=== PATIENT | female | born 1955 | race Caucasian/White ===

== ENCOUNTER → 2016-11-25 | Outpatient (CLI) | payer OTHER ==
[~2016-11-25] MED LIST: ACCUNEB SO1.25 MG/1 INH; APAP650 PO; BENADRYL25 MG PO; BENTYL 20 MG TA20 M1 PO; COLACE100 MG PO; ECHINACEA & GO1 EACH PO; FLOMAX0.4 MG PO; FLONASE 0.05%50 MCG NASAL; FLOVENT HFA 1110 MCG INH; MUCINEX TA600 MG/TA2 PO; NASONEX17 GM NASAL; PROAIR HFA8.5 GM INH; PROTONIX40 M1 PO; UNICOMPLEX M TA1 TA1 PO; VITAMIN D1000 UNI1 PO
== END ==
LOC: RAD 12:20
DX: M25.531 Pain in right wrist (principal)

== ENCOUNTER → 2017-02-27 | Outpatient (CLI) | payer OTHER ==
[~2017-02-27] MED LIST changes: +ACETAMINOPHEN500 M1 PO; +KEFLEX500 MG PO
== END ==
LOC: RAD 15:17
DX: R10.9 Unspecified abdominal pain (principal)

== ENCOUNTER 2017-03-01 12:22 | Emergency (ER) | payer OTHER ==
[~2017-03-01] VITALS: Ht 152.4 cm; Wt 44.5 kg
[~2017-03-01 12:22] MED LIST changes: -ACETAMINOPHEN500 M1 PO; -KEFLEX500 MG PO
[2017-03-01] MEDS ORDERED: ACETAMINOPHEN500 M1 PO (12:34)
[2017-03-01 12:55] LABS: URINE BILIRUBIN NEGATIVE (Negative); URINE BLOOD 3+ (Negative); URINE COLOR YELLOW; URINE GLUCOSE-RANDOM* NEGATIVE (Negative); URINE KETONES TRACE (Negative); URINE LEUKOCYTES-REFLEX NEGATIVE (Negative); URINE PROTEIN (DIPSTICK) NEGATIVE (Negative); URINE UROBILINOGEN 0.2 E.U./dl (0.2-1.0)
[2017-03-01 13:06] LABS: HEMOGLOBIN 12.4 gm/dL (12.0-15.0); MCH 30.5 pg (26.0-34.0); MCHC 33.6 g/dL (28.0-37.0); MCV 90.7 fL (80.0-100.0); PLATELET COUNT 242 thou/uL (150-400); RBC 4.08 mil/uL (4.20-5.00); RDW 12.5 % (10.5-14.5); WBC 13.3 thou/uL (4.0-11.0)
[2017-03-01 13:12] LABS: CALCIUM 8.5 mg/dL (8.5-10.1); CREATININE 0.7 mg/dL (0.6-1.0); POTASSIUM 3.2 mmol/L (3.5-5.1)
[2017-03-01 13:13] LABS: CASTS None Seen /LPF (None Seen); CRYSTALS None Seen /LPF (None Seen); SQUAMOUS 0-3 Few /LPF (0-3); URINE RBC 3-10 Few /HPF (0-2); URINE WBC-REFLEX 0-5 Rare /HPF (0-5)
[2017-03-01 13:28] LABS: MANUAL DIFF YES
[2017-03-01 13:29] LABS: ALBUMIN 3.5 g/dL (3.4-5.0); TOTAL BILIRUBIN 0.6 mg/dL (<0.1-1.0); TOTAL PROTEIN 6.9 g/dL (6.4-8.2)
[2017-03-01 14:00] LABS: ABSOLUTE NEUTROPHILS 11.8 thou/uL (1.4-8.2); TOTAL CELL COUNT 100
[2017-03-01] MEDS ORDERED: KEFLEX500 MG PO (14:43)
== END 2017-03-01 16:59 | disposition home or self-care (01) ==
LOC: ER 12:22
PROVIDERS: Physician Assistant
DX: J18.8 Other pneumonia, unspecified organism (principal); K59.00 Constipation, unspecified; Z98.890 Other specified postprocedural states; Z90.710 Acquired absence of both cervix and uterus; J45.909 Unspecified asthma, uncomplicated; F41.9 Anxiety disorder, unspecified; Z90.721 Acquired absence of ovaries, unilateral; Z90.49 Acquired absence of other specified parts of digestive tract; Z88.1 Allergy status to other antibiotic agents; Z88.8 Allergy status to other drugs, medicaments and biological substances; F10.99 Alcohol use, unspecified with unspecified alcohol-induced disorder

== ENCOUNTER → 2017-05-11 | Outpatient (CLI) | payer OTHER ==
[~2017-05-11] MED LIST changes: +ACETAMINOPHEN500 M1 PO; +KEFLEX500 MG PO
== END ==
LOC: RAD 14:13
DX: K59.00 Constipation, unspecified (principal)

== ENCOUNTER → 2017-07-17 | Outpatient (CLI) | payer OTHER ==
[~2017-07-17] MED LIST changes: +AMOXICILLIN 50500 MG PO; +DIGEST ADV INT1 EACH PO; +FLOVENT INH
== END ==
LOC: RAD 15:41
DX: R10.9 Unspecified abdominal pain (principal); R14.0 Abdominal distension (gaseous); R11.0 Nausea

== ENCOUNTER 2017-07-18 15:18 | Inpatient (IN) | payer OTHER ==
[~2017-07-18] VITALS: Ht 152.4 cm; Wt 44.0 kg
--- NOTE | ~2017-07-18 | O ---
[facility] [place] [address] OPERATIVE REPORT Name: STEPHANIE KING Room #: 412-P ADM IN M.R.#: [id number] Admission: 07/18/17 Attend Phys: Arik Flaherty DO Discharge: Date of : 57 Report #: [id number] THIS REPORT FOR: //name// CC: Neil Coronel DATE OF SERVICE: 07/21/2017 SURGEON: Remebrto Coronel MD. SET O TYPE OPERATOR: Maribell Rueda NP. PREOPERATIVE DIAGNOSES: 1. Recurrent incisional ventral hernia. 2. Possible partial small-bowel obstruction. POSTOPERATIVE DIAGNOSES: 1. Recurrent incarcerated incisional ventral hernia. 2. Partial small-bowel obstruction secondary to internal hernia. PROCEDURE: 1. Laparoscopic repair of recurrent incarcerated incisional ventral hernia. 2. Laparoscopic lysis of adhesions. 3. Laparoscopic closure of internal hernia. ANESTHESIA: General endotracheal anesthesia and local anesthetic. ESTIMATED BLOOD LOSS: 5 mL. SPECIMEN: Incarcerated hernia content. COMPLICATIONS: None appreciated. INDICATIONS FOR PROCEDURE: This is a 61-year-old female patient who was seen in the [place] [facility] with complaints of severe abdominal pain and a "twisting" sensation in her abdomen occurring just prior to bowel obstructive symptoms. CT of the abdomen and pelvis at the time of admission showed a possible colonic ileus with nonspecific gastroenteritis similar to a previous CT scan. A small amount of pelvic ascites was present. A sac containing upper midline incisional hernia was also seen with no evidence for bowel obstruction. The patient has a history of multiple abdominal operations and was noted to have [facility] [address] [place] [address] OPERATIVE REPORT Name: STEPHANIE KING Room #: 412-P ADM IN M.R.#: [id number] Admission: 07/18/17 Attend Phys: Arik Flaherty DO Discharge: Date of : 57 Report #: [id number] inability to pass a pseudocapsule (capsule used to test for passage of a capsule endoscopy). She has a history of having undergone small bowel resections and has undergone resection of redundant transverse and descending colon as well as repair of an incisional ventral hernia. Since the patient's admission, she has undergone a small bowel follow-through which shows no evidence for a bowel obstruction. The patient has ongoing symptoms and complains of abdominal pain associated with her recurrent incisional ventral hernia as well. Repair of her hernia is indicated. While in her abdominal cavity, plan is to lyse any adhesions and evaluate for a partial small-bowel obstruction. OPERATIVE FINDINGS: Upon entrance into the abdominal cavity, the adhesions were seen extending to the anterior abdominal wall. After taking down the adhesions, multiple incisional ventral hernias were seen in a [place] cheese fashion. The largest of the hernias were located in the upper midline at the superior most portion of her incision. This contained preperitoneal and omental fat. The incarcerated tissue was eventually removed to be sent for specimen. The span of the defects in a craniocaudad dimension was 6 cm. It was approximately 2 cm wide. A 10 x [address] Mesh patch was chosen for the repair. After placement of the mesh, there was no rippling of the mesh and good overlap of the defects. On evaluation of her bowel, there was mild dilatation of her small bowel. Eventually, I was able to find the ileocecal valve and when running this back, I encountered bowel entering an internal hernia. The hernia was created to a mesenteric defect from her previous resection of redundant transverse colon. The anastomosis appeared intact. It was an end-to-end sutured anastomosis. Similarly, a small bowel anastomosis was seen more proximally. After fully reducing the small bowel from within the internal hernia, the mesenteric defect was visualized and amenable to intracorporeal suturing. The bowel was viable. No other significant intraabdominal pathology was seen. At the conclusion of the operation, sponge, needle, and instrument counts were correct. There was no evidence for iatrogenic injury. DESCRIPTION OF PROCEDURE IN DETAIL: After the risks, benefits, and expectations, the operation were discussed in detail with the patient, informed consent was obtained. The patient was identified in the preoperative holding area. She was given IV antibiotics as documented in the chart in line with SCIP metrics. The patient was then taken to the operating room and she was placed in the supine position. SCDs were placed on the patient's bilateral lower extremities and pneumatic compression was initiated. The patient was then given IV sedation and she was intubated without incident. Her abdomen was prepped and draped in the standard sterile fashion. A time-out was performed to identify the correct patient and procedure. Local anesthetic was infiltrated into the skin and subcutaneous tissue in the [address] [address] OPERATIVE REPORT Name: FERNANDOSTEPHANIE CASTILLO Room #: 412-P [facility] IN M.R.#: [id number] Admission: 07/18/17 Attend Phys: Ariktaran Storeyrell, DO Discharge: Date of : 57 Report #: [id number] left subcostal area where a small transverse incision was made. A 5 mm Visiport was placed intraperitoneally with a 0-degree angled laparoscope. Pneumoperitoneum was then achieved with insufflation of carbon dioxide to 15 mmHg. A 30-degree angled laparoscope was then inserted. Additional ports were placed in the left abdomen. A 12 mm left lateral and 5 mm lower quadrant port were each placed under direct visualization after local anesthetic was infiltrated into the skin and subcutaneous tissue and appropriately sized incisions were made. Operative findings are as noted above. The omental adhesions to the anterior abdominal wall were carefully taken down with the ultrasonic dissector after ensuring there was no bowel involvement. The abdominal wall was then skeletonized. The abdominal wall fat was removed from the superior most hernia defect and the peritoneum was stripped down out of each of the defects. Incarcerated tissue was placed in the right upper quadrant of the abdomen for later removal. The defects were then measured and the appropriate sized mesh patch was chosen for the repair. The mesh was prepared on the backtable and placed within the abdominal cavity through the 12 mm port. The eyelet of the inflation catheter was brought through the abdominal wall with a needle tipped suture grasper. The eyelet was then excised and the balloon was inflated with the inflation device. The balloon would serve as temporary scaffolding for the mesh. The mesh was then tacked to the anterior abdominal wall with the SecureStrap absorbable fixation device. The mesh was tacked at 1 cm or less intervals around the periphery. The catheter was then cut at the skin level and the balloon was removed from the abdominal cavity. The internal portion of the mesh was tacked to the abdominal wall with the SecureStrap device as well. The intra-abdominal pressure had been reduced to 10 mmHg. The incarcerated hernia content was then removed through the 12 mm port. The abdominal cavity was reentered. The transverse colon was visualized. I initially attempted to find the small bowel proximally; however, this proved to be quite difficult and I was eventually able to find the terminal ileum. The bowel was run back proximally. While doing so, the bowel seemed to cross under the colon and this represented an internal hernia. The bowel was run proximally while reducing it from the hernia defect. After fully reducing it, the colon was suspended anteriorly and a moderate sized mesenteric defect was identified associated with her previous transverse colon resection. This was located at the ligament of Treitz. A 3-0 PDS suture was then placed within the abdominal cavity and the mesenteric defect was closed in a running fashion. The tissue was triangulated to complete the closure. The needle was then removed from the abdominal cavity. The fluid from the abdominal cavity was suctioned and there was good hemostasis. Other findings are as noted above. The 12 mm port site fascial opening was then closed with the Asif-Carolyn laparoscopic fascial closure device using 0 PDS suture. Suture was tied under direct visualization to ensure no incorporation of intraabdominal content. The abdominal cavity was then desufflated and the remaining ports were removed. Interrupted subcuticular 4-0 Monocryl sutures and [address] [address] OPERATIVE REPORT Name: STEPHANIE KING Room #: 412-P [facility] IN M.R.#: [id number] Admission: 07/18/17 Attend Phys: Arik Flaherty DO Discharge: Date of : 57 Report #: [id number] Dermabond were used to close the skin incisions. Dermabond was also applied to the puncture site for delivery of the inflation catheter. The patient tolerated the procedure well. She was awakened, extubated, and taken to the recovery room in stable condition with no apparent intraoperative complications. <ELECTRONICALLY SIGNED> By: Remberto Coronel MD, FACS 07/25/17 0915 [id number] Remberto Coronel MD, FACS /nt
--- NOTE | ~2017-07-18 | HC ---
[facility] [address] CONSULTATION Name: STEPHANIE KING Room #: 412-P ADM IN M.R.#: [id number] Admission: 07/18/17 Attend Phys: Arik Flaherty DO Discharge: Date of : 57 Report #: [id number] THIS REPORT FOR: //name// CC: Shun LY DATE OF SERVICE: 07/19/2017 ATTENDING PHYSICIAN: Benjie Gonzalez DO REASON FOR CONSULTATION: Abdominal pain. HISTORY OF PRESENT ILLNESS: This is a 61-year-old female patient known to me from a recent evaluation for a partial small bowel obstruction. She was admitted to [facility] through the emergency room with complaints of severe abdominal pain and a "twisting" sensation in her abdomen, which occurs just prior to her bowel obstructive symptoms. She has been calling the office over the past several days with complaints of worsening pain and abdominal distention. She has been taking Fleet enemas with passage of some gas and minimal stool. She has initial release of her symptoms with the passage of flatus; however, her symptoms soon recur. She underwent a CT of the abdomen and pelvis at the time of her admission, showing a possible colonic ileus with nonspecific gastroenteritis similar to a previous CT scan. A small amount of pelvic ascites is also present. I reviewed the report further with radiology. A fat containing upper midline hernia was present (an addendum has been issued). There was no evidence for obstruction. The patient's symptoms began approximately 7 years ago when she became hypotensive and was found to be severely anemic with the hemoglobin in the 6 range. She underwent an extensive workup, which was essentially negative including both upper and lower endoscopy as well as capsule endoscopy. She had difficulty with intermittent episodes of anemia and eventually an area of bleeding, isolated in the jejunum, felt to be secondary to an arteriovenous malformation. She underwent embolization by interventional radiology in May 2010. She had ongoing difficulty with intermittent anemia and again began passing bright red blood per rectum, requiring embolization on other occasions. Ultimately, the patient underwent a segmental small bowel resection in May 2011 at which time a stromal tumor was identified. She required a segmental small bowel resection. She had an additional operation for a bowel obstruction during which time another small bowel resection and appendectomy were performed. The patient has undergone other operations including x 2 as well as a laparoscopic cholecystectomy. In the several years after her second segmental small bowel resection, the patient had intermittent episodes of bowel obstruction, treated with conservative measures. The patient ultimately [address] [address] CONSULTATION Name: STEPHANIE KING Room #: 412-P [facility] IN M.R.#: [id number] Admission: 07/18/17 Attend Phys: Arik Flaherty DO Discharge: Date of : 57 Report #: [id number] underwent a segmental small bowel resection and resection of redundant transverse and descending colon as well as primary repair of an incisional ventral hernia. This led up to her most recent difficulty with what are felt to be episodes of partial small bowel obstructions. The patient reports having undergone a small bowel follow through this past December, which was found to be abnormal. Greater than 2 hours was required for the contrast to travel to the colon. A definite transition point was not identified. The patient was to undergo a capsule endoscopy and swallowed a pseudocapsule (used to determine whether the actual capsule would pass). The pseudocapsule did not pass beyond the certain point and for this reason, capsule endoscopy was not performed. The patient has been seen in the emergency room this past February and March for similar small bowel obstructive symptoms and in March, she was felt to have an ileus. More recently abdominal films obtained with nonspecific bowel gas pattern and moderate stool in the colon. On the day prior to her admission, the patient underwent a 3-view abdominal x-ray showing mild generalized ileus without obstruction and no evidence for an acute intraabdominal process or small bowel obstruction. Abdominal x-ray this past April was reviewed, which showed the gastric motility capsule to be located in the central pelvis as well as a possible mild ileus. The patient denies fever or chills. Her abdominal pain has improved today compared to her pain at presentation. PAST MEDICAL HISTORY: Significant for cavernous hemangioma, GI stromal tumor, previous GI bleed, overactive bladder, thyroid nodule. PAST SURGICAL HISTORY: Includes that which as noted above. The patient has undergone , laparoscopic cholecystectomy, colectomy, including small bowel resection, transverse colon resection, eye surgery, hysterectomy, thyroid biopsy, other previous bowel resections and incisional ventral hernia repair. MEDICATIONS: Please see the hospital chart for details. She is currently receiving amoxicillin (recent now), pantoprazole, Lovenox, p.r.n. Dilaudid and a p.r.n. Zofran. ALLERGIES: DOXYCYCLINE and VANCOMYCIN. FAMILY HISTORY: Reviewed and noncontributory to this hospitalization. Her mother has hypertension and atrial fibrillation. Father has macular degeneration. SOCIAL HISTORY: The patient denies use of tobacco or illicit drugs. She drinks one alcoholic drink daily. 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 REVIEW OF SYSTEMS: As per history of present illness. In addition: [address] [address] CONSULTATION Name: STEPHANIE KING Room #: 412-P [facility] IN [facility]#: [id number] Admission: 07/18/17 Attend Phys: Arik Flaherty DO Discharge: Date of : 57 Report #: [id number] GENERAL: The patient denies fever, chills or unexpected weight change. HEENT: Denies changes in taste, vision, hearing or smell. RESPIRATORY: Denies shortness of breath, COPD or asthma. CARDIOVASCULAR: Denies chest pain or palpitations. GENITOURINARY: Denies dysuria, urgency or increased urinary frequency. MUSCULOSKELETAL: Denies myalgia, arthralgia or arthritis. NEUROLOGIC: Denies headaches, numbness or tingling. PSYCHIATRIC: Denies depression, anxiety or suicidal ideations. SKIN AND INTEGUMENTARY: Denies new skin lesions, rashes or moles. LABORATORY DATA: CBC today shows a white blood cell count of 4.1, hemoglobin 13.2, hematocrit 37.9 and platelets 272. Electrolytes show sodium of 136, potassium 4.3, chloride 101, CO2 of 27, BUN 6, creatinine 0.7 and glucose 95. Lactate at admission was normal at 0.8. Liver function tests at admission were entirely normal. RADIOLOGIC STUDIES: Abdominal series and CT findings are as discussed above. IMPRESSION AND PLAN: This is a 61-year-old female patient with the above listed comorbidities, who has a twisting sensation in the lower abdomen as a precursor sensation to a small bowel obstruction. She reports abdominal distention. Her CT scan has shown changes consistent with a colonic ileus rather than an obstructive process. We discussed the pathophysiology and natural history of small bowel obstructive disease as well as treatment alternatives, evaluation, and potential surgical options. The patient would benefit from a repeat small bowel follow through to compare with her previous small bowel follow through. She may have colonic inertia or may be sensitive to the adhesions within her abdominal cavity. She does have a recurrent incisional ventral hernia at the superior aspect of her incisional scar. The patient may benefit from operative intervention, informed of a diagnostic laparoscopy. I would plan to repair her incisional ventral hernia and would perform lysis of adhesions on any significant scar tissue within the abdominal cavity. The patient may require a segmental small bowel resection, and if so, the use of mesh may not be possible. I will follow along with serial abdominal exams as well as labs and x-rays. I sincerely appreciate the opportunity to participate in the care of this patient and will leave further recommendations and orders in the electronic medical record as appropriate. Thank you very much for this exclusive general surgery consult. <ELECTRONICALLY SIGNED> By: Remberto Coronel MD, FACS 07/20/17 0652 [id number] Remberto Coronel MD, FACS /nt
--- NOTE | ~2017-07-18 | S ---
[facility] [place] [address] SURGICAL PATH RPT PROCEDURE Name: STEPHANIE KING Room #: 412-P [facility] IN M.R.#: [id number] Admission: 07/18/17 Date of : 57 Discharge: 07/25/17 Report #: [id number] Path Case #: [id number] PATHOLOGY REPORT COLLECTION DATE: 07/21/2017 RECEIVED DATE: 07/21/2017 SUBMITTING PHYS: Dr. Remberto Coronel OTHER PHYS: MAYRA Irving SPECIMEN(S) RECEIVED: A.Incarcerated hernia contents * * * * * * * * * * * * FINAL DIAGNOSIS: Fibroadipose and fibrovascular connective tissue, incarcerated hernia contents, repair: - Congested tissue compatible with a hernia sac. (IUV:mml; 07/25/2017) PATHOLOGIST: Vesna Hernandez M.D. REPORT ELECTRONICALLY SIGNED BY: Vesna Hernandez M.D. DATE/TIME: 07/25/2017 16:38 * * * * * * * * * * * * GROSS PATHOLOGY: Received in formalin labeled "Stephanie King, incarcerated hernia contents," and additionally labeled on the requisition as "contents," is a piece of fibroadipose tissue with attached fibrinous tissue measuring 6.3 x 3.6 x 1.6 cm. No nodules or lesions are identified. Copy Camera Operator tissue is submitted in cassette A1. (TSD; 07/21/2017) CLINICAL HISTORY: Pre-OP DX: Small bowel obstruction/ventral hernia Post-OP DX: Incarcerated ventral/incisional hernia, mesenteric defect INITIAL CPT CODE(S): A; 64988 Professional services performed by [facility] at [facility] [address], [place] [address] Technical services performed by [facility] at [address] [place] [address]. [facility] [address] [place] [address] SURGICAL PATH RPT PROCEDURE Name: CLARISSABIRDSTEPHANIE CASTILLO Room #: 412-P [facility] IN ..#: [id number] Admission: 07/18/17 Date of : 57 Discharge: 07/25/17 Report #: [id number] Path Case #: [id number] [facility] [address] [address] PHONE: [phone] DIRECTOR: Won Lanza M.D. * * * END OF REPORT * * *
[2017-07-18 15:18] VITALS: BP 152/97
[~2017-07-18 15:18] MED LIST changes: -AMOXICILLIN 50500 MG PO; -DIGEST ADV INT1 EACH PO; -FLOVENT INH
[2017-07-18 15:35] LABS: URINE BILIRUBIN NEGATIVE (Negative); URINE BLOOD 2+ (Negative); URINE COLOR YELLOW; URINE GLUCOSE-RANDOM* NEGATIVE (Negative); URINE KETONES NEGATIVE (Negative); URINE NITRITE NEGATIVE (Negative); URINE PROTEIN (DIPSTICK) NEGATIVE (Negative); URINE SPECIFIC GRAVITY <= 1.005 (1.003-1.035); URINE UROBILINOGEN 0.2 E.U./dl (0.2-1.0)
[2017-07-18 15:44] LABS: ABSOLUTE NEUTROPHILS 3.7 thou/uL (1.4-8.2); BASOPHILS 0.8 % (0.0-2.0); EOSINOPHILS 0.3 % (0.0-3.0); HEMOGLOBIN 14.9 gm/dL (12.0-15.0); LYMPHOCYTES 19.4 % (24.0-44.0); MCHC 34.7 g/dL (28.0-37.0); MCV 92.1 fL (80.0-100.0); MONOCYTES 9.8 % (1.0-8.0); PLATELET COUNT 298 thou/uL (150-400); POLYS 69.7 % (36.0-66.0); RBC 4.66 mil/uL (4.20-5.00); RDW 12.5 % (10.5-14.5); WBC 5.3 thou/uL (4.0-11.0)
[2017-07-18 15:44] LABS: BACTERIA 1-9 Few /HPF (None Seen); CASTS None Seen /LPF (None Seen); CRYSTALS None Seen /LPF (None Seen); SQUAMOUS 0-3 Few /LPF (0-3); URINE RBC 0-2 Rare /HPF (0-2); URINE WBC None Seen /HPF (0-5)
[2017-07-18 15:55] LABS: MANUAL DIFF NO
[2017-07-18 15:58] LABS: CALCIUM 9.7 mg/dL (8.5-10.1); CREATININE 0.6 mg/dL (0.6-1.0); POTASSIUM 3.6 mmol/L (3.5-5.1)
[2017-07-18 16:04] LABS: ALBUMIN 4.7 g/dL (3.4-5.0); TOTAL BILIRUBIN 0.7 mg/dL (<0.1-1.0); TOTAL PROTEIN 7.9 g/dL (6.4-8.2)
[2017-07-18 16:19] LABS: INR 1.1; PROTIME 10.4 Seconds (9.3-11.4)
[2017-07-18] MEDS ORDERED: AMOXICILLIN 50500 MG PO (16:43)
[2017-07-18 17:32] VITALS: BP 152/97
[2017-07-18 18:00] VITALS: BP 143/87
[2017-07-18 18:07] VITALS: BP 141/84
[2017-07-18] MEDS ORDERED: FLOVENT INH (18:32)
[2017-07-18] MEDS ORDERED: DIGEST ADV INT1 EACH PO (18:32)
[2017-07-18 20:06] VITALS: BP 105/69
[2017-07-18 23:48] VITALS: BP 94/64
[2017-07-19 04:12] VITALS: BP 96/60
[2017-07-19 06:20] LABS: HEMATOCRIT 37.9 % (37.0-47.0); HEMOGLOBIN 13.2 gm/dL (12.0-15.0); MCH 32.5 pg (26.0-34.0); MCHC 34.9 g/dL (28.0-37.0); MCV 93.1 fL (80.0-100.0); RBC 4.07 mil/uL (4.20-5.00); RDW 12.7 % (10.5-14.5); WBC 4.1 thou/uL (4.0-11.0)
[2017-07-19 06:47] LABS: CREATININE 0.7 mg/dL (0.6-1.0); POTASSIUM 4.3 mmol/L (3.5-5.1)
[2017-07-19 07:40] VITALS: BP 107/76
[2017-07-19 20:50] VITALS: BP 130/83
[2017-07-20 00:04] VITALS: BP 133/91
[2017-07-20 04:30] VITALS: BP 149/89
[2017-07-20 06:25] LABS: ABSOLUTE NEUTROPHILS 3.1 thou/uL (1.4-8.2); BASOPHILS 1.1 % (0.0-2.0); EOSINOPHILS 0.2 % (0.0-3.0); HEMATOCRIT 41.1 % (37.0-47.0); HEMOGLOBIN 14.5 gm/dL (12.0-15.0); LYMPHOCYTES 16.4 % (24.0-44.0); MCH 32.3 pg (26.0-34.0); MCHC 35.2 g/dL (28.0-37.0); MCV 91.8 fL (80.0-100.0); MONOCYTES 10.2 % (1.0-8.0); PLATELET COUNT 279 thou/uL (150-400); POLYS 72.1 % (36.0-66.0); RBC 4.48 mil/uL (4.20-5.00); RDW 12.4 % (10.5-14.5); WBC 4.3 thou/uL (4.0-11.0)
[2017-07-20 06:30] LABS: MANUAL DIFF NO
[2017-07-20 07:06] LABS: ALBUMIN 4.6 g/dL (3.4-5.0); CALCIUM 9.6 mg/dL (8.5-10.1); CREATININE 0.4 mg/dL (0.6-1.0); POTASSIUM 3.3 mmol/L (3.5-5.1); TOTAL BILIRUBIN 1.1 mg/dL (<0.1-1.0); TOTAL PROTEIN 7.8 g/dL (6.4-8.2)
[2017-07-20 08:44] VITALS: BP 138/92
[2017-07-20 10:27] LABS: APTT 34.9 Seconds (24.5-32.8); INR 1.1; PROTIME 11.2 Seconds (9.3-11.4)
[2017-07-20 16:00] VITALS: BP 115/70
[2017-07-20 20:30] VITALS: BP 132/94
[2017-07-21] VITALS (9 sets, daily range): BP systolic 106–130; BP diastolic 66–76
[2017-07-21 04:51] LABS: HEMATOCRIT 37.3 % (37.0-47.0); HEMOGLOBIN 12.7 gm/dL (12.0-15.0); MCH 31.7 pg (26.0-34.0); MCV 93.2 fL (80.0-100.0); RDW 12.4 % (10.5-14.5)
[2017-07-21 05:25] LABS: CALCIUM 8.7 mg/dL (8.5-10.1); CREATININE 0.6 mg/dL (0.6-1.0); MAGNESIUM 1.8 mg/dL (1.8-2.4); POTASSIUM 3.7 mmol/L (3.5-5.1)
[2017-07-22 00:17] VITALS: BP 121/71
[2017-07-22 04:03] LABS: ALBUMIN 3.3 g/dL (3.4-5.0); CALCIUM 8.6 mg/dL (8.5-10.1); CREATININE 0.6 mg/dL (0.6-1.0); MAGNESIUM 1.8 mg/dL (1.8-2.4); POTASSIUM 3.2 mmol/L (3.5-5.1); TOTAL BILIRUBIN 0.6 mg/dL (<0.1-1.0)
[2017-07-22 04:28] LABS: ABSOLUTE NEUTROPHILS 6.3 thou/uL (1.4-8.2); BASOPHILS 0.2 % (0.0-2.0); EOSINOPHILS 0.7 % (0.0-3.0); HEMATOCRIT 37.4 % (37.0-47.0); HEMOGLOBIN 12.7 gm/dL (12.0-15.0); LYMPHOCYTES 13.7 % (24.0-44.0); MCH 31.8 pg (26.0-34.0); MCV 93.4 fL (80.0-100.0); MONOCYTES 9.2 % (1.0-8.0); PLATELET COUNT 246 thou/uL (150-400); POLYS 76.2 % (36.0-66.0); RDW 12.3 % (10.5-14.5); WBC 8.3 thou/uL (4.0-11.0)
[2017-07-22 04:29] VITALS: BP 116/82
[2017-07-22 04:31] LABS: MANUAL DIFF NO
[2017-07-22 08:30] VITALS: BP 108/79
[2017-07-22 16:42] VITALS: BP 111/76
[2017-07-22 20:00] VITALS: BP 137/88
[2017-07-23 06:24] LABS: HEMATOCRIT 34.2 % (37.0-47.0); HEMOGLOBIN 11.6 gm/dL (12.0-15.0); MCH 31.8 pg (26.0-34.0); MCHC 33.9 g/dL (28.0-37.0); MCV 93.9 fL (80.0-100.0); RBC 3.64 mil/uL (4.20-5.00); RDW 12.5 % (10.5-14.5); WBC 4.3 thou/uL (4.0-11.0)
[2017-07-23 06:29] VITALS: BP 116/79
[2017-07-23 06:33] LABS: CALCIUM 8.2 mg/dL (8.5-10.1); CREATININE 0.5 mg/dL (0.6-1.0); POTASSIUM 3.2 mmol/L (3.5-5.1)
[2017-07-23 07:49] VITALS: BP 126/88
[2017-07-23 20:04] VITALS: BP 140/96
[2017-07-23 22:48] VITALS: BP 132/87
[2017-07-24 05:18] LABS: HEMATOCRIT 34.3 % (37.0-47.0); HEMOGLOBIN 11.7 gm/dL (12.0-15.0); MCH 31.8 pg (26.0-34.0); MCHC 34.1 g/dL (28.0-37.0); MCV 93.4 fL (80.0-100.0); PLATELET COUNT 212 thou/uL (150-400); RBC 3.68 mil/uL (4.20-5.00); RDW 12.5 % (10.5-14.5)
[2017-07-24 05:19] LABS: MANUAL DIFF YES
[2017-07-24 06:32] LABS: ABSOLUTE NEUTROPHILS 1.8 thou/uL (1.4-8.2); TOTAL CELL COUNT 100
[2017-07-24 06:33] VITALS: BP 111/81
[2017-07-24 08:30] VITALS: BP 109/77
[2017-07-24 11:57] LABS: CALCIUM 8.6 mg/dL (8.5-10.1); CREATININE 0.6 mg/dL (0.6-1.0); POTASSIUM 3.6 mmol/L (3.5-5.1)
[2017-07-24 17:13] VITALS: BP 141/87
[2017-07-24 19:05] VITALS: BP 117/89
[2017-07-25 03:46] VITALS: BP 102/66
[2017-07-25 07:30] VITALS: BP 120/82
[2017-07-25 09:39] LABS: URINE BILIRUBIN NEGATIVE (Negative); URINE BLOOD 1+ (Negative); URINE COLOR YELLOW; URINE GLUCOSE-RANDOM* NEGATIVE (Negative); URINE KETONES NEGATIVE (Negative); URINE LEUKOCYTES-REFLEX NEGATIVE (Negative); URINE PROTEIN (DIPSTICK) NEGATIVE (Negative); URINE UROBILINOGEN 0.2 E.U./dl (0.2-1.0)
[2017-07-25 09:53] LABS: CASTS None Seen /LPF (None Seen); CRYSTALS None Seen /LPF (None Seen); SQUAMOUS 0-3 Few /LPF (0-3); URINE RBC 3-10 Few /HPF (0-2); URINE WBC-REFLEX 0-5 Rare /HPF (0-5)
[2017-07-25 10:01] LABS: HEMATOCRIT 40.4 % (37.0-47.0); MCH 32.3 pg (26.0-34.0); MCHC 34.1 g/dL (28.0-37.0); MCV 94.8 fL (80.0-100.0); RBC 4.26 mil/uL (4.20-5.00); RDW 12.6 % (10.5-14.5); WBC 4.3 thou/uL (4.0-11.0)
[2017-07-25 10:02] LABS: HEMOGLOBIN 13.8 gm/dL (12.0-15.0)
[2017-07-25 10:13] LABS: CALCIUM 9.4 mg/dL (8.5-10.1); CREATININE 0.9 mg/dL (0.6-1.0); MAGNESIUM 2.3 mg/dL (1.8-2.4); POTASSIUM 3.1 mmol/L (3.5-5.1); TOTAL BILIRUBIN 0.3 mg/dL (<0.1-1.0); TOTAL PROTEIN 7.5 g/dL (6.4-8.2)
[2017-07-25] MEDS ORDERED: PEPCID20 MG PO (11:01)
[2017-07-25 11:38] VITALS: BP 120/82
== END 2017-07-25 13:02 | disposition home or self-care (01) | DRG 336 ==
LOC: ER 15:18 → EROBS 17:17 → 4N 17:17 → ENTRNSPT 07-25 12:48 → EDTRNSPTSTS 07-25 12:51 → 4N 07-25 13:02
PROVIDERS: Hospitalist; Internal Medicine Endocrinology, Diabetes & Metabolism; Nurse Practitioner Family; Surgery
PROC: 0DNS4ZZ (ICD-10-PCS; principal; 2017-07-21)
PROC: 0WUF4JZ Supplement Abdominal Wall with Synthetic Substitute, Percutaneous Endoscopic Approach (ICD-10-PCS; principal; 2017-07-21)
PROC: 0WQF4ZZ Repair Abdominal Wall, Percutaneous Endoscopic Approach (ICD-10-PCS; principal; 2017-07-21)
DX: K43.0 Incisional hernia with obstruction, without gangrene (principal); E87.1 Hypo-osmolality and hyponatremia; E46 Unspecified protein-calorie malnutrition; Z68.1 Body mass index [BMI] 19.9 or less, adult; J45.909 Unspecified asthma, uncomplicated; F41.9 Anxiety disorder, unspecified; K52.9 Noninfective gastroenteritis and colitis, unspecified; K66.0 Peritoneal adhesions (postprocedural) (postinfection); E87.6 Hypokalemia; Z90.710 Acquired absence of both cervix and uterus; Z90.89 Acquired absence of other organs; Z88.1 Allergy status to other antibiotic agents; Z90.49 Acquired absence of other specified parts of digestive tract; Z82.49 Family history of ischemic heart disease and other diseases of the circulatory system; Z84.89 Family history of other specified conditions
CPT/HCPCS: 10790; 50010; 50101; 50249; 50386; 50455; 50555; 50558; 50962; 50979; 50984; 51489; 52265; 53307; 54022; 54118; 56462; 56525; 56526; 56527; 57092; 62110; 62900; 70005

== ENCOUNTER → 2017-07-26 | Outpatient (CLI) | payer OTHER ==
[~2017-07-26] MED LIST changes: +AMOXICILLIN 50500 MG PO; +DIGEST ADV INT1 EACH PO; +FLOVENT INH; +PEPCID20 MG PO
== END ==
LOC: RAD 07:39
DX: Z12.31 Encounter for screening mammogram for malignant neoplasm of breast (principal)

== ENCOUNTER → 2017-08-21 | Outpatient (CLI) | payer OTHER ==
[~2017-08-21] VITALS: Ht 152.4 cm; Wt 42.6 kg
[~2017-08-21] MED LIST changes: +GAS-X125 MG PO; +KLOR-CON 1010 MEQ PO; +MIRALAX17 G1 PO; +PROBIOTIC1 EAC1 PO; +REFRESH PLUS1 EACH OPHTHALMIC; +TOBRADEX ST EYE5 ML OPHTHALMIC; +TRAMADOL 50 MG50 MG PO
--- NOTE | ~2017-08-21 | P ---
[facility] [place] [address] PROCEDURE REPORT Name: STEPHANIE KING Room #: REG [facility]#: [id number] Admission: 08/21/17 Attend Phys: Shun Kowalski Discharge: Date of : 57 Report #: [id number] THIS REPORT FOR: //name// CC: Shun Coronel MD DATE OF SERVICE: 08/21/2017 PROCEDURE PERFORMED: Upper endoscopy with esophageal dilation. HISTORY OF PRESENT ILLNESS: The patient is a 61-year-old female with a history of gastroesophageal reflux disease, Sjogren syndrome. She has had previous history of GI bleed from a small bowel lesion status post resection. She has had a redo of the anastomosis by Dr. Warren several years ago and then recently on July 21 had a hernia repair by Dr. Coronel that reportedly showed a partial obstruction. She continues to have difficulty with abdominal pain and bloating. Plan is for upper endoscopy today. DESCRIPTION OF PROCEDURE: The risks and benefits of the procedure were explained to the patient, those risks including but not limited to bleeding, perforation, the risk of sedation. She understands these risks and gave informed consent. Sedation was given using propofol per anesthesia. Next, using a standard [employer]n upper endoscope, the scope was placed in the patient's mouth and advanced under direct vision through the esophagus, stomach and into the second portion of the duodenum. The esophagus was normal throughout. The GE junction was normal. There was no evidence of stricture or narrowing, no esophagitis was noted. Overall, the gastric mucosa was normal throughout. The pylorus was normal and patent. The duodenal bulb, first and second portion were all normal. The scope was then brought back up into the patient's stomach and a Savary guidewire was inserted through the scope, leaving the guidewire in place as the scope was then withdrawn. Next, a 48-Kinyarwanda Savary dilation of the esophagus was then performed without difficulty. The wire and dilator removed. The scope was reintroduced into the patient's stomach. There was no evidence of mucosal tear after dilation. The scope was then withdrawn and the procedure terminated. The patient tolerated the procedure well. IMPRESSION: Normal upper endoscopy. RECOMMENDATIONS: 1. Observe the patient post-dilation. 2. Continue daily PPI therapy. 3. We will consider proceeding with a small bowel follow through. [address] [address] PROCEDURE REPORT Name: FERNANDOSTEPHANIEMARIYA CASTILLO Room #: REG [facility]#: [id number] Admission: 08/21/17 Attend Phys: Shun Kowalski Discharge: Date of : 57 Report #: [id number] Thank you for allowing me to participate in her care. <ELECTRONICALLY SIGNED> By: Shun Gray MD 08/21/17 1122 [id number] [id number] Shun Gray MD /kelly
== END | disposition home or self-care (01) ==
LOC: GI 06:49
DX: K21.9 Gastro-esophageal reflux disease without esophagitis (principal); J45.909 Unspecified asthma, uncomplicated; M35.00 Sjogren syndrome, unspecified; F41.8 Other specified anxiety disorders; Z90.710 Acquired absence of both cervix and uterus; Z98.0 Intestinal bypass and anastomosis status; Z90.49 Acquired absence of other specified parts of digestive tract; Z88.0 Allergy status to penicillin; Z79.899 Other long term (current) drug therapy; Z85.038 Personal history of other malignant neoplasm of large intestine; Z87.19 Personal history of other diseases of the digestive system
CPT/HCPCS: 62110; 62900

== ENCOUNTER → 2017-10-31 | Outpatient (CLI) | payer OTHER ==
[~2017-10-31] MED LIST changes: +BOOST244 ML PO; +FLOVENT HFA 4444 MCG INH; +HYDROCODONE-AP1 EAC6 PO; +LEVALBUTER1.25 MG/0. INH; +PHENERGAN 25 MG25 M1 PO; +SYSTANE NIGHTT3.5 GM OPHTHALMIC; +XOPENEX HFA15 GM INH; +XYZAL5 MG PO
== END ==
LOC: MRI 08:57
DX: M47.896 Other spondylosis, lumbar region (principal); R06.00 Dyspnea, unspecified

== ENCOUNTER → 2017-11-08 | Outpatient (CLI) | payer OTHER ==
[~2017-11-08] MED LIST changes: +EPINEPHRIN0.3 MG/0.1 IM; +LINZESS72 MCG PO; +MIRALAX17 GM PO; +MOXIFLOXACIN3 ML OPHTHALMIC; +PRED-FORTE OPHTH1 M1 OPHTHALMIC; +VITAMIN D2000 UNIT PO; +ZANTAC 150MG T150 MG PO
== END ==
LOC: GI 06:36
DX: K92.2 Gastrointestinal hemorrhage, unspecified (principal)

== ENCOUNTER → 2017-11-10 | Outpatient (CLI) | payer OTHER ==
[~2017-11-10] MED LIST changes: -EPINEPHRIN0.3 MG/0.1 IM; -LINZESS72 MCG PO; -MIRALAX17 GM PO; -MOXIFLOXACIN3 ML OPHTHALMIC; -PRED-FORTE OPHTH1 M1 OPHTHALMIC; -VITAMIN D2000 UNIT PO; -ZANTAC 150MG T150 MG PO
== END ==
LOC: RAD 07:20
DX: R10.11 Right upper quadrant pain (principal); T18.9XXA Foreign body of alimentary tract, part unspecified, initial encounter; X58.XXXA Exposure to other specified factors, initial encounter; Y93.89 Activity, other specified; Y92.89 Other specified places as the place of occurrence of the external cause; Y99.8 Other external cause status

== ENCOUNTER → 2017-12-20 | Outpatient (CLI) | payer OTHER ==
[~2017-12-20] MED LIST changes: +EPINEPHRIN0.3 MG/0.1 IM; +LINZESS72 MCG PO; +MIRALAX17 GM PO; +MOXIFLOXACIN3 ML OPHTHALMIC; +PRED-FORTE OPHTH1 M1 OPHTHALMIC; +VITAMIN D2000 UNIT PO; +ZANTAC 150MG T150 MG PO
[2017-12-20 08:24] LABS: CREATININE 0.7 mg/dL (0.6-1.0)
== END ==
LOC: CAT 07:53
PROVIDERS: Surgery
DX: R10.9 Unspecified abdominal pain (principal); Z90.49 Acquired absence of other specified parts of digestive tract; Z87.19 Personal history of other diseases of the digestive system

== ENCOUNTER → 2017-12-22 | Outpatient (CLI) | payer OTHER | LOC: RAD 07:58 | DX: R10.9 Unspecified abdominal pain (principal) ==

== ENCOUNTER → 2018-03-14 | Outpatient (CLI) | payer OTHER ==
[~2018-03-14] VITALS: Ht 152.4 cm; Wt 43.5 kg
[~2018-03-14] MED LIST changes: -VITAMIN D2000 UNIT PO
--- NOTE | ~2018-03-14 | P ---
[facility] [place] [address] PROCEDURE REPORT Name: STEPHANIE KING Room #: REG [facility].#: [id number] Admission: 03/14/18 Attend Phys: Shun Kowalski Discharge: Date of : 57 Report #: [id number] THIS REPORT FOR: //name// CC: Shun Boogie Elda Keagan LY DATE OF SERVICE: 03/14/2018 PROCEDURE PERFORMED: Upper endoscopy with esophageal dilation. HISTORY OF PRESENT ILLNESS: The patient is a 62-year-old female with intermittent dysphagia. Last upper endoscopy with dilation was performed in August, which was helpful. She is having recurrent dysphagia at this time. Plan is for repeat dilation. DESCRIPTION OF PROCEDURE: The risks and benefits of the procedure were explained to the patient, those risks including but not limited to bleeding, perforation and the risk of sedation. She understood these risks and gave informed consent. Sedation was given using propofol per anesthesia. Next, using a standard [employer] upper endoscope, the scope was placed in the patient's mouth and advanced under direct vision through the esophagus, stomach and into the second portion of the duodenum. The larynx was normal in appearance. The esophagus was normal throughout. The GE junction was normal. No evidence of stricture or narrowing. Overall, the gastric mucosa was normal. The pylorus was normal and patent. The duodenal bulb, first and second portion were all normal. The scope was then brought back up into the patient's stomach and a Savary guidewire was inserted through the scope, leaving the guidewire in place as the scope was withdrawn. Next, 51-Azerbaijani Savary dilation was then performed without difficulty. The wire and dilator were removed. The scope was reintroduced into the patient's stomach. There was no evidence of mucosal tear after dilation. The scope was then withdrawn and the procedure terminated. The patient tolerated the procedure well. IMPRESSION: 1. Normal upper endoscopy. 2. Status post dilation. RECOMMENDATIONS: Observe the patient post-dilation. Thank you for allowing me to participate in her care. By: 0944 1225 Shun Gray MD /nt
== END | disposition home or self-care (01) ==
LOC: GI 07:49
DX: R13.19 Other dysphagia (principal); J45.909 Unspecified asthma, uncomplicated; K21.9 Gastro-esophageal reflux disease without esophagitis; M19.90 Unspecified osteoarthritis, unspecified site; F41.8 Other specified anxiety disorders; Z98.41 Cataract extraction status, right eye; Z90.49 Acquired absence of other specified parts of digestive tract; Z98.890 Other specified postprocedural states; Z90.710 Acquired absence of both cervix and uterus; Z87.19 Personal history of other diseases of the digestive system; Z85.068 Personal history of other malignant neoplasm of small intestine; Z79.899 Other long term (current) drug therapy; Z88.8 Allergy status to other drugs, medicaments and biological substances
CPT/HCPCS: 62110; 62900

== ENCOUNTER → 2018-07-03 | Outpatient (CLI) | payer OTHER | LOC: RAD 10:14 | DX: I87.8 Other specified disorders of veins (principal); R10.9 Unspecified abdominal pain; R14.0 Abdominal distension (gaseous); R50.9 Fever, unspecified; J45.909 Unspecified asthma, uncomplicated; M81.0 Age-related osteoporosis without current pathological fracture ==

== ENCOUNTER → 2018-08-15 | Outpatient (CLI) | payer OTHER ==
[~2018-08-15] MED LIST changes: +VITAMIN D2000 UNIT PO
--- NOTE | ~2018-08-15 | 2DMMODE ---
[facility] [place] [address] 2 D/M-MODE ECHOCARDIOGRAM Name: STEPHANIE KING Room #: REG [facility]#: [id number] Admission: 08/15/18 Attend Phys: Melissa Martinez, Discharge: Date of : 57 Date of Service: 08/15/18 1447 Report #: [id number] THIS REPORT FOR: //name// ADDENDUM APPROVED REPORT Study performed: 08/15/2018 13:37:24 EXAM: Comprehensive 2D, Doppler, and color-flow Echocardiogram Patient Location: Out-Patient Status: routine BSA: 1.41 HR: 66 bpm BP: 112/77 mmHg Rhythm: NSR Other Information Study Quality: Adequate Technically limited study due to thin body habitus, off-axis windows. Indications Palpitations 2D Dimensions RVDd: 25.46 mm IVSd: 7.66 (7-11mm) LVOT Diam: 21.17 (18-24mm) LVDd: 42.05 mm PWd: 7.82 (7-11mm) Ascending Ao: 27.94 (22-36mm) LVDs: 25.44 (25-40mm) Aortic Root: 26.16 mm IVC: 22.00 mm Volumes Left Atrial Volume (Systole) Single Plane 4CH: 13.80 mL Aortic Valve AoV Peak Parvez.: 1.10 m/s AO Peak Gr.: 4.81 mmHg LVOT Max P.89 mmHg LVOT Max V: 0.69 m/s PARKER Vmax: 2.20 cm2 Mitral Valve E/A Ratio: 1.2 MV Decel. Time: 235.07 ms [facility] [address] [address] 2 D/M-MODE ECHOCARDIOGRAM Name: STEPHANIE KING Room #: REG [facility]#: [id number] Admission: 08/15/18 Attend Phys: Melissa Martinez, Discharge: Date of : 57 Date of Service: 08/15/18 1447 Report #: [id number] MV E Max Parvez.: 0.50 m/s MV A Parvez.: 0.41 m/s MV PHT: 68.17 ms IVRT: 101.50 ms Tricuspid Valve TR Peak Parvez.: 2.20 m/s RAP Estimate: 5.00 mmHg TR Peak Gr.: 19.33 mmHg Left Ventricle The left ventricle is normal size. There is normal LV segmental wall motion. There is normal left ventricular wall thickness. The left ventricular systolic function is normal. LVEF is 55-60%. Right Ventricle The right ventricle is normal size. The right ventricular systolic function is normal. Atria The left atrium size is normal. The right atrium size is normal. Aortic Valve Aortic valve leaflets are mildly thickened. Trace aortic regurgitation. There is no aortic valvular stenosis. Mitral Valve The mitral valve is normal in structure. Trace mitral regurgitation. No evidence of mitral valve stenosis. Tricuspid Valve The tricuspid valve is normal in structure. Mild tricuspid regurgitation. Unable to assess PA pressure. Pulmonic Valve Pulmonic valve is not well visualized. Great Vessels The aortic root is normal in size. The ascending aorta is normal in size. IVC is normal in size and collapses >50% with inspiration. Pericardium There is no pericardial effusion. <Conclusion> [facility] [address] [address] 2 D/M-MODE ECHOCARDIOGRAM Name: STEPHANIE KING Room #: REG [facility]#: [id number] Admission: 08/15/18 Attend Phys: Melissa Martinez, Discharge: Date of : 57 Date of Service: 08/15/181446 Report #: [id number] The left ventricle is normal size. There is normal left ventricular wall thickness. The left ventricular systolic function is normal. The right ventricle is normal size. The left atrium size is normal. The right atrium size is normal. Trace aortic regurgitation. Trace mitral regurgitation. Mild tricuspid regurgitation. There is no pericardial effusion. <ELECTRONICALLY SIGNED> By: Joe Restrepo MD 08/15/18 [phone] Joe Restrepo MD /INF
== END ==
LOC: CV 08:16
DX: Z12.31 Encounter for screening mammogram for malignant neoplasm of breast (principal); I07.1 Rheumatic tricuspid insufficiency; I35.8 Other nonrheumatic aortic valve disorders; I45.10 Unspecified right bundle-branch block

== ENCOUNTER → 2018-08-22 | Outpatient (CLI) | payer OTHER ==
[~2018-08-22] VITALS: Ht 152.4 cm; Wt 47.2 kg
--- NOTE | ~2018-08-22 | PATH ---
[facility] [address] [place] [address] PATHOLOGY RPT PROCEDURE Name: GAVI KING Room #: REG [facility] M.R.#: [id number] Admission: 08/22/18 Date of : 57 Discharge: Report #: [id number] Path Case #: [id number] [facility] Accession Number: [id number] . 01 Material submitted: . BX RANDOM COLON R/O MICROSCOPIC COLITIS . 01 Clinician provided ICD-10: K52.9 . 01 Clinical history: . Colitis, abdomen pain . 02 Diagnosis: Large intestinal mucosa, random colon, endoscopic biopsy: - Mild focal acute colitis. - Negative for dysplasia or malignancy. [facility]/08/23/2018 . 02 Comment: Sections of the colonic mucosa designated "random colon" show focal cryptitis, and a moderately cellular lamina propria composed predominantly of lymphocytes and plasma cells and occasional eosinophils. Surface ulceration is not identified. There are no crypt abscesses, granulomas or viral inclusions. The process affects all the fragments with a similar intensity. Given the description, the differential diagnosis includes mild focal active colitis due to self-limited etiology, infectious etiology, early inflammatory bowel disease, reaction to medications amongst others as diverticulitis. Please correlate with clinical as well as endoscopic findings. (IUV:pit 08/23/2018) . 02 Electronically signed: . Vesna Hernandez MD, Pathologist NPI- [id number] . 01 Gross description: . The specimen is received in formalin, labeled "Gavi King, BX random colon rule out microscopic colitis" and consists of 4 fragments of soft ambriz-brown tissue measuring between 0.2 x 0.2 x 0.1 cm and 0.3 x 0.3 x 0.1 cm. They are entirely submitted in A1. (SDY; 08/22/2018) SYU/SYU . 02 Pathologist provided ICD-10: K52.9 . 02 [place] [address] PATHOLOGY RPT PROCEDURE Name: GAVI KING Room #: REG [facility].#: [id number] Admission: 08/22/18 Date of : 57 Discharge: Report #: [id number] Path Case #: [id number] [facility] . [id number] Specimen Comment: A courtesy copy of this report has been sent to Specimen Comment: [phone]. Specimen Comment: Report sent to / DR EDEN Performed at: [address], [place], [place] [id number] MD Lenard Grover MD Phone: [phone] Performed at: [address] [id number] MD Vesna Hernandez MD Phone: [phone]
--- NOTE | ~2018-08-22 | P ---
[facility] [place] [address] PROCEDURE REPORT Name: STEPHANIE KING Room #: REG [facility]#: [id number] Admission: 08/22/18 Attend Phys: Shun Kowalski Discharge: Date of : 57 Report #: [id number] THIS REPORT FOR: //name// CC: Shun Boogie Elda Keagan LY DATE OF SERVICE: 08/22/2018 PROCEDURE PERFORMED: Flexible sigmoidoscopy with biopsies. HISTORY OF PRESENT ILLNESS: The patient is a 62-year-old female with a history of intermittent abdominal pain, constipation and diarrhea. She has had previous small bowel resections. She was hospitalized in mid June of this year for abdominal pain. CT scan of the abdomen and pelvis on 07/04/2018 showed fluid diffusely throughout the colon suggesting diarrhea as well as in the small bowel, non-distention of the very distal colon, partial left colon resection noted, the proximal colon was distended with fluid. A water soluble enema was then performed on 07/05/2018, partial colon resection with short remaining colon was noted, smooth narrowing of the sigmoid colon without obstruction, inability to reflux contrast into the terminal ileum. Plan is for flexible sigmoidoscopy today. DESCRIPTION OF PROCEDURE: The risks and benefits of the procedure were explained to the patient, those risks including but not limited to bleeding, perforation, the risk of sedation. She understood these risks and gave informed consent. Sedation was given using propofol per Anesthesia. Next, a digital rectal exam was initially performed, which was normal. Next, using a standard Olympus colonoscope, the scope was placed in the patient's anus and advanced under direct vision into the ascending colon. The cecum and ileocecal valve were normal in appearance. Ascending, transverse, remaining descending and sigmoid colon were essentially normal. There was no stricture, no diverticula noted in the sigmoid colon. Because of the patient's intermittent diarrhea symptoms, random biopsies were obtained to rule out microscopic colitis. The rectal mucosa was normal. The scope was then withdrawn and the procedure terminated. The patient tolerated the procedure well. IMPRESSION: Normal flexible sigmoidoscopy. RECOMMENDATIONS: Await biopsy results. [address] [address] PROCEDURE REPORT Name: STEPHANIE KING Room #: REG [facility]#: [id number] Admission: 08/22/18 Attend Phys: Shun Kowalski Discharge: Date of : 57 Report #: [id number] Thank you for allowing me to participate in her care. <ELECTRONICALLY SIGNED> By: Shun Gray MD 08/24/18 0845 1001 2225 Shun Gray MD /nt
== END | disposition home or self-care (01) ==
LOC: GI 07:46
DX: K52.9 Noninfective gastroenteritis and colitis, unspecified (principal); K21.9 Gastro-esophageal reflux disease without esophagitis; F41.9 Anxiety disorder, unspecified; J45.909 Unspecified asthma, uncomplicated; M19.90 Unspecified osteoarthritis, unspecified site; D64.9 Anemia, unspecified; Z98.0 Intestinal bypass and anastomosis status; Z87.19 Personal history of other diseases of the digestive system; Z90.710 Acquired absence of both cervix and uterus; Z98.890 Other specified postprocedural states; Z79.899 Other long term (current) drug therapy; Z90.49 Acquired absence of other specified parts of digestive tract; Z98.41 Cataract extraction status, right eye; Z98.42 Cataract extraction status, left eye; Z88.8 Allergy status to other drugs, medicaments and biological substances
CPT/HCPCS: 62110; 62900

== ENCOUNTER → 2018-09-14 | Outpatient (CLI) | payer OTHER | LOC: NUC 07:08 | DX: R07.9 Chest pain, unspecified (principal); R06.09 Other forms of dyspnea ==

== ENCOUNTER → 2018-11-15 | Outpatient (CLI) | payer OTHER | LOC: ULTRA 08:08 | DX: E04.1 Nontoxic single thyroid nodule (principal) ==

== ENCOUNTER → 2018-12-03 | Outpatient (CLI) | payer OTHER ==
--- NOTE | 2018-12-06 16:08 | PATH ---
[facility] [address] [place] [address] PATHOLOGY RPT PROCEDURE Name: STEPHANIE KING Room #: REG [facility].#: [id number] Admission: 12/03/18 Date of : 57 Discharge: Report #: [id number] Path Case #: [id number] Note [facility] Accession Number: [id number] TESTS RESULT FLAG UNITS REF RANGE LAB Clinician Provided Cytology Information No. of containers..01 Other (Miscellaneous) Source: RT THYROID DIAGNOSIS: 02 RIGHT THYROID, FINE NEEDLE ASPIRATION NEGATIVE FOR MALIGNANT CELLS. BETHESDA CATEGORY II. SPECIMEN CONSISTS OF FOLLICULAR CELLS, HEMOSIDERIN-LADEN MACROPHAGES, COLLOID, AND BLOOD. THIS PATTERN IS COMPATIBLE WITH A FOLLICULAR NODULE. THIS INTERPRETATION INCLUDES EVALUATION OF A CELL BLOCK. Comment: Examination shows abundant macrofollicles, watery and dense colloid along with hemosiderin laden macrophages. Changes are compatible with an adenomatoid nodule. The differential diagnosis includes a macrofollicular adenoma. Nuclear features of papillary thyroid carcinoma are not identified. Please note sample may not be accounting representative. Correlate clinically and follow-up as indicated. Pathologist ICD10: 02 E04.1 Signed out by: Vesna Hernandez MD, Pathologist NPI- [id number] Performed by: 01 Jerad Hoover, Paper Final Inspector (ASCP) Gross description: 01 25ML, RED, CLOUDY /LCS FLAG LEGEND: L-Low Normal,H-High Normal,LL-Alert Low,HH-Alert High <-Panic Low,>-Panic High,A-Abnormal,AA-Critical Abnormal Performed at: [facility] [address] [place] [address] Lenard Grover MD, 02 [facility] [address] [address] Vesna Hernandez MD, Specimen Comment: A courtesy copy of this report has been sent to [address] [address] PATHOLOGY RPT PROCEDURE Name: STEPHANIE KING Room #: REG [facility]#: [id number] Admission: 12/03/18 Date of : 57 Discharge: Report #: [id number] Path Case #: [id number] Specimen Comment: [phone]. Specimen Comment: Report sent to Specimen Comment: A duplicate report has been generated due to demographic updates. Performed at: 01 [facility] [place], [place], [place] [id number] MD Lenard Grover MD Phone: [phone]
== END ==
LOC: ULTRA 11:48
DX: E04.1 Nontoxic single thyroid nodule (principal)

== ENCOUNTER → 2019-04-24 | Outpatient (CLI) | payer OTHER ==
[~2019-04-24] VITALS: Ht 152.4 cm; Wt 48.5 kg
--- NOTE | ~2019-04-24 | P ---
[facility] [place] [address] PROCEDURE REPORT Name: STEPHANIE KING Room #: REG [facility].#: [id number] Admission: 04/24/19 ������������������ Attend Phys: Shun Kowalski Discharge: ������������������ Date of : 57 Report #: [id number] THIS REPORT FOR: //name// CC: Shun LY DATE OF SERVICE: 04/24/2019 PROCEDURE PERFORMED: Upper endoscopy with biopsies and esophageal dilation. HISTORY OF PRESENT ILLNESS: The patient is a 63-year-old female with history of gastroesophageal reflux disease, abdominal bloating and dysphagia. Last upper endoscopy with dilation was in February of last year. Dilation was helpful. She is beginning to have recurrent dysphagia to solids and liquids within the last month. She is currently taking Protonix as well as Zantac. Plan is for endoscopy. DESCRIPTION OF PROCEDURE: The risks and benefits of the procedure were explained to the patient; those risks including, but not limited to bleeding, perforation and the risk of sedation. She understood these risks and gave informed consent. Sedation was given using propofol per Anesthesia. Next, using a standard Olympus upper endoscope, the scope was placed in the patient's mouth and advanced under direct vision through the esophagus, stomach and into the second portion of the duodenum. The upper and mid esophagus were normal in appearance. In the distal esophagus, at the GE junction, a possible short segment of Luong's was noted. Biopsies were obtained to rule out Luong's. Overall, the gastric mucosa was normal, other than a few small gastric polyps. Biopsies were obtained. The pylorus was normal and patent. The duodenal bulb, first and second portion were normal. Because of her abdominal bloating, biopsies were obtained to rule out celiac sprue. The scope was then brought back up into the patient's stomach and Savary guidewire was inserted through the scope, leaving the guidewire in place as the scope was then withdrawn. Next, a 51-Trinidadian Savary dilation of the esophagus was then performed without difficulty. The wire and dilator were removed. The scope was re-introduced into the patient's stomach. There was no evidence of mucosal tear after dilation. The scope was then withdrawn and the procedure terminated. The patient tolerated the procedure well. IMPRESSION: 1. 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 2. Small gastric polyps. 3. Otherwise, normal upper endoscopy. RECOMMENDATIONS: [address] [address] PROCEDURE REPORT Name: STEPHANIE KING Room #: REG [facility]#: [id number] Admission: 04/24/19 ������������������ Attend Phys: Shun Kowalski Discharge: ������������������ Date of : 57 Report #: [id number] 1. Await biopsy results. 2. Continue PPI therapy. 3. Observe status post dilation. Thank you for allowing me to participate in her care. ��������������������������������������������� ���������������������������������������� By: ��������������������������������������������� 0936 0242 Shun Gray MD /kelly
--- NOTE | 2019-04-25 16:06 | PATH ---
[facility] [address] [place] [address] PATHOLOGY RPT PROCEDURE Name: GAVI KING Room #: REG [facility] M.R.#: [id number] ������������������ Admission: 04/24/19 ������������������ Date of : 57 Discharge: Report #: [id number] Path Case #: [id number] [facility] Accession Number: [id number] . 01 Material submitted: . PART A: duodenum - BX DUODENUM R/O SPRUE HX: ABD BLOATING PART B: stomach - BX OF GASTRIC POLYPS PART C: esophagus - BX DISTAL ESOPHAGUS R/O BARRETTS. Modifiers: distal . 01 Clinical history: . Pre-OP DX: Dysphagia, abdominal bloating Post-OP DX: Gastric polyps, dysphagia, abdominal bloating . 02 Diagnosis: A. Small bowel mucosa, duodenum, rule out sprue, endoscopic biopsy: - No diagnostic abnormalities present. - Negative for villous blunting or increase in intraepithelial lymphocytes. . B. Polyps, gastric polyps, endoscopic biopsy: - One fragment showing findings compatible with a fundic gland polyp. - Negative for dysplasia. - Remainder of fragments showing no diagnostic abnormalities. . C. Gastroesophageal mucosa, distal esophagus, rule out Luong's, endoscopic biopsy: - Mild chronic inflammation. - Negative for intestinal metaplasia or dysplasia. - Squamous mucosa showing mild esophagitis. . (IUV:clinic clerk; 04/25/2019) MBR/04/25/2019 . 02 Electronically signed: . Vesna Hernandez MD, Pathologist NPI- [id number] . 01 Gross description: . A. Received in formalin labeled "Gavi King, TRUONG duodenum, rule out sprue, Hx abdominal bloating," are 4 segments of ambriz soft tissue measuring 1.0 x 0.8 x 0.3 cm in aggregate dimensions and ranging from 0.3 to 0.5 cm in maximum dimension. The specimen is submitted entirely in cassette A1. . B. Received in formalin labeled "Gavi King, BX gastric polyps," are 3 segments of ambriz soft tissue measuring 1.0 x 0.9 x 0.3 cm in aggregate dimensions and ranging from 0.3 to 0.6 cm in maximum dimension. The specimen is submitted entirely in cassette B1. [address] [address] PATHOLOGY RPT PROCEDURE Name: GAVI KING [facility] [id number] ������������������ Admission: 04/24/19 ������������������ Date of : 57 Discharge: Report #: [id number] Path Case #: [id number] . C. Received in formalin labeled "Alexander, Gavi, BX distal esophagus, rule out Luong's," is a single segment of ambriz soft tissue measuring 0.5 cm in maximum dimension. The specimen is entirely submitted in cassette C1. (TSD; 04/24/2019) TOB/TOB . 02 Pathologist provided ICD-10: K31.7, K29.50, K20.9 . 02 CPT . 591096, 501311, 725706 Specimen Comment: A courtesy copy of this report has been sent to Specimen Comment: [phone], . Specimen Comment: Report sent to / DR EDEN Performed at: [address], [place] [id number] MD Lenard Grover MD Phone: [phone] Performed at: [address] [id number] MD Vesna Hernandez MD Phone: [phone]
== END | disposition home or self-care (01) ==
LOC: GI 07:24
DX: K31.7 Polyp of stomach and duodenum (principal); K20.9 Esophagitis, unspecified; K21.9 Gastro-esophageal reflux disease without esophagitis; J45.909 Unspecified asthma, uncomplicated; F41.9 Anxiety disorder, unspecified; M19.90 Unspecified osteoarthritis, unspecified site; Z90.710 Acquired absence of both cervix and uterus; Z90.49 Acquired absence of other specified parts of digestive tract; Z98.890 Other specified postprocedural states; Z98.0 Intestinal bypass and anastomosis status; Z85.068 Personal history of other malignant neoplasm of small intestine; Z98.41 Cataract extraction status, right eye; Z98.42 Cataract extraction status, left eye; Z79.899 Other long term (current) drug therapy
CPT/HCPCS: 62110; 62900

== ENCOUNTER → 2019-07-04 | Outpatient (CLI) | payer OTHER | LOC: ULTRA 15:20 | DX: E04.1 Nontoxic single thyroid nodule (principal) ==

== ENCOUNTER → 2019-09-17 | Outpatient (CLI) | payer OTHER | LOC: RAD 11:53 | DX: Z12.31 Encounter for screening mammogram for malignant neoplasm of breast (principal) ==

== ENCOUNTER 2019-10-21 10:37 | Observation (INO) | payer OTHER ==
[~2019-10-21] VITALS: Ht 152.4 cm; Wt 49.9 kg
[~2019-10-21 10:37] MED LIST changes: +QVAR REDIHALE10.6 G1 INH
[2019-10-21 15:45] VITALS: BP 130/82
[2019-10-21 16:45] VITALS: BP 112/75
[2019-10-21 17:45] VITALS: BP 110/80
--- NOTE | 2019-10-21 18:18 | NUR ---
Patient admitted at approximately 1510 today after Right Thyroid Lobectomy. Dressing to incision area is clean, dry and intact. Patient reports pain to this area, only has Tylenol 1000mg po which she refused, stating "maybe I will see how my pain is after eating Dinner." Patient ordered some soup and a few other items. She has voiced no concerns since. is at bedside. Patient has special goggles/glasses that she has to keep on at all times due to her diagnosis of Sjogren's Syndrome. Vital signs have been stable since arriving to this unit. Will report to on-coming nurse.
[2019-10-21 19:38] VITALS: BP 112/74
[2019-10-21 23:31] VITALS: BP 91/60
--- NOTE | 2019-10-22 02:11 | NUR ---
PATIENT AOX4 MAKES NEEDS KNOWN. PATIENT HAD A RIGHT THROID LOBECTOMY, DRESSING IS C/D/I. PAIN CONTROLLED THIS SHIFT WITH PAIN MEDS AND ICE PACK. PATIENT AMBULATES WITH STEADY GAITS TO THE BATHROOM. SCD ON. PATIENT IN BED ASLEEP AT THIS TIME BREATHING REGULAR AND UNLABOURED.
[2019-10-22 04:26] VITALS: BP 107/73
[2019-10-22 08:09] VITALS: BP 108/77
[2019-10-22 11:32] VITALS: BP 108/77
--- NOTE | 2019-10-22 11:35 | NUR ---
PT A&OX4, VSS, NO SIGNS OF DISTRESS. PATIENT DISCHARGING HOME. PATIENT UNDERSTANDS INSTRUCTIONS GIVEN ON CARE FOR INCISION OVER THYROID. INCISION HAS DERMOND C/D/I. ALL BELONGINGS WITH PATIENT, IV REMOVED.
--- NOTE | 2019-10-22 13:00 | NUR ---
PT ADMITTED RELATED TO RT THYROID LOBECTOMY. CM REVIEWED CHART AND SPOKE WITH CARE TEAM. CM MET WITH PT AT BEDSIDE THIS DAY./ PT IS A&O X4. CM ROLE INTRODUCED. PT INDICATED SHE LIVES IN A RANCH STYLE HOUSE WITH HER SPOUSE WITH NO STEPS TO ENTER AND NO STEPS SHE USES INSIDE. 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 PT INDICATED SHE HAD DONE OP OT IN THE PAST BUT HAD NO HH HX. PT INDICATED SHE PLANS TO DISHCARGE HOME TODAY WITH NO NEEDS. NO OTHER CM INTERVENTION INDICATED. CASE CLOSED.
--- NOTE | 2019-10-24 20:06 | PATH ---
[facility] [address] [place] [address] PATHOLOGY RPT PROCEDURE Name: STEPHANIE KING Room #: 463-[facility] Jaspreet Hutchins#: [id number] Admission: 10/21/19 Date of : 57 Discharge: 10/22/19 Report #: [id number] Path Case #: [id number] [facility] Accession Number: [id number] . 01 Material submitted: . thyroid gland - RIGHT THYROID LOBE - FS. Modifiers: right . 02 Frozen section diagnosis: . FROZEN SECTION DIAGNOSIS (Jennifer Campos MD) . Thyroid, right lobe: - 1.5 cm nodule. - No evidence of malignancy. . Findings relayed to Dr. Sarah at the time of the procedure. . Frozen section performed at [facility], [address] [place] [address] , [place] [address]. . . . GROSS DESCRIPTION The specimen is received fresh and it is labeled, "right thyroid lobe" and it consists of an 8.3 gram, 4 x 2.2 x 1.4 cm lobe of soft, dark red thyroid parenchyma which contains an attached 2 x 0.7 x 0.7 cm portion of dark red isthmus. The lobe portion of the specimen is inked blue and the isthmus portion is inked red. Serial cut sections through the specimen show a single, fairly well-circumscribed, soft red/pink nodule which measures 1.5 cm in greatest dimension. No other abnormalities are seen in the specimen. A inbound call center representative section of the nodule is frozen on block A1. . The frozen remnant is submitted in A1. The remainder of the thyroid nodule is submitted in A2-A3. The remaining thyroid lobe parenchyma is all submitted in A4-A5. The remaining isthmus tissue is submitted in block A6. (TINO:santana; 10/21/2019) NATHAN/TAY . 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 - Margins of resection free of malignancy; closest inked margin is 1 mm away. - 1.5 cm follicular adenoma. - Background of nodular hyperplasia. [address] [address] PATHOLOGY RPT PROCEDURE Name: STEPHANIE KING Room #: 463-[facility] Hutchins#: [id number] Admission: 10/21/19 Date of : 57 Discharge: 10/22/19 Report #: [id number] Path Case #: [id number] . . . Surgical Pathology Cancer Case Summary . Protocol posting date: April 2017 . THYROID GLAND: . Procedure ___ Right lobectomy . Tumor Focality ___ Unifocal . Tumor Site ___ Right lobe . Tumor Size Greatest dimension (centimeters): 0.1 cm Additional dimensions (centimeters): 0.1 x 0.1 cm . Histologic Type . Papillary Carcinomas ____ Noninvasive follicular thyroid neoplasm with papillary like nuclear features (NIFTP) . Margins ___ Uninvolved by carcinoma Distance of invasive carcinoma from closest margin (millimeters): 1 mm . Angioinvasion (Vascular Invasion) ___ Not identified . Lymphatic Invasion ___ Not identified . Perineural Invasion ___ Not identified . Extrathyroidal Extension ___ Not identified . Regional Lymph Nodes ___ No lymph nodes submitted or found . [address] [address] PATHOLOGY RPT PROCEDURE Name: STEPHANIE KING Room #: 463-[facility] Jaspreet Hutchins#: [id number] Admission: 10/21/19 Date of : 57 Discharge: 10/22/19 Report #: [id number] Path Case #: [id number] Pathologic Stage Classification (pTNM, AJCC 8th Edition) . For Papillary, Follicular, Poorly Differentiated, Hurthle Cell and Anaplastic Thyroid Carcinoma Primary Tumor (pT) ___ pT1a: Tumor =1 cm in greatest dimension limited to the thyroid . For All Carcinomas of the Thyroid Distant Metastasis (pM) pMx: None known . . Additional Pathologic Findings ___ Adenoma ___ Adenomatoid nodule(s) or nodular follicular disease (eg, nodular hyperplasia, goitrous thyroid) . (IUV:pit; 10/24/2019) QTP 10/24/2019 1900 Local . 02 Comment: A 1 mm focus of noninvasive follicular thyroid neoplasm with papillary-like nuclear features is identified. This is 1 mm away from the closest margin of resection. This is identified in the section submitted as A4. None of these features are identified in the block submitted for frozen section. The block A4 represents background thyroid parenchyma and does not represent a part of the follicular adenoma submitted for frozen section. . Dr. Manuel Wagoner has seen inbound call center representative slides of this case and concurs with my diagnosis. Findings of this case are telephoned to Ms. Larson, Dr. Guillermo Sarah's nurse, at 10:26 am on 10/24/2019. (IUV:pit; 10/24/2019) . 02 Electronically signed: . Vesna Hernandez MD, Pathologist NPI- [id number] . 03 Gross description: . PLEASE SEE FROZEN SECTION FOR GROSS DESCRIPTION. /MBR 10/21/2019 1800 Local . 02 Pathologist provided ICD-10: D34 . 02 CPT . 024129, [id number] Specimen Comment: A courtesy copy of this report has been sent to [phone], [place] [address] PATHOLOGY RPT PROCEDURE Name: STEPHANIE KING Room #: 463-P WILLIE Hutchins#: [id number] Admission: 10/21/19 Date of : 57 Discharge: 10/22/19 Report #: [id number] Path Case #: [id number] Specimen Comment: [id number] Specimen Comment: Report sent to / DR EDEN Performed at: [address], [place], [place] [id number] MD Lenard Grover MD Phone: [phone] Performed at: [address], [place], [place] [id number] MD Vesna Hernandez MD Phone: [phone] Performed at: [address], [place], [place] [id number] MD Lenard Grover MD Phone: [phone]
--- NOTE | 2019-10-31 10:11 | O ---
[facility] [place] [place] [address] OPERATIVE REPORT Name: STEPHANIE KING Room #: 463-P [facility] MSelena#: [id number] Admission: 10/21/19 Attend Phys: Guillermo Sarah MD Discharge: 10/22/19 Date of : 57 Report #: [id number] THIS REPORT FOR: //name// CC: Guillermo Sarah Elda Boogie DATE OF SERVICE: 10/21/2019 PREOPERATIVE DIAGNOSIS: Right thyroid mass. POSTOPERATIVE DIAGNOSIS: Right thyroid mass. PROCEDURE: Right thyroid lobectomy and isthmusectomy. SURGEON: Guillermo Sarah MD DUST MIXER: Dr. Ross Wynn. His expertise was integral in preserving vital structures. ANESTHESIA: General oral endotracheal, NIMS tube. TECHNIQUE: After obtaining consent, she was brought to the operating suite, appropriate time-out was performed. General oral endotracheal anesthesia was obtained. She was placed in a slight neck hyperextension position with a small shoulder roll. Neck was prepped and draped in usual sterile fashion, 4 mL of 1% Xylocaine with 1:100,000 epinephrine was injected in the subcutaneous area approximately 2 fingerbreadths above the clavicles in midline. A collar incision was made through skin and subcutaneous tissue and platysmal layer. The midline raphe was identified and bluntly dissected free in a superior to inferior direction. Loose fascial tissue was then dissected away exposing the thyroid isthmus. Strap muscles were then dissected away in a medial to lateral direction exposing the lateral border of the right thyroid lobe in a superior to inferior fashion. The medial aspect of superior lobe was then dissected free along with a small pyramidal lobe. I continued to roll the right thyroid lobe medially exposing the venules and arterioles, which were taken down with the LigaSure or bipolar cautery. Preservation of both the superior and inferior parathyroids was obtained. I continued rolling the gland medially exposing the recurrent laryngeal nerve where it was dissected out, identified and traced up to its insertion in the cricothyroid space. At this point, the pyramidal lobe was taken down with the thyroid lobe and the remainder of the thyroid lobe was taken off of Chaves's ligament with the use of bipolar cautery or the LigaSure. The isthmus was divided in the midline with use of the LigaSure. Specimen was sent for frozen pathology with diagnosis returning negative for malignancy. The neck was then irrigated with the effluent returning clear. Hemostasis was found to be adequate. Small pieces of Surgicel were used to cover the recurrent laryngeal nerve. The strap muscles were reapproximated with 3-0 [address] suture[address] [address] OPERATIVE REPORT Name: STEPHANIE KING Room #: 463-P [facility] Jaspreet MorilloRMouna#: [id number] Admission: 10/21/19 Attend Phys: Guillermo Sarah MD Discharge: 10/22/19 Date of : 57 Report #: [id number] Subcutaneous layer, platysma layer was closed in a similar fashion. Skin was closed with Dermabond, Telfa and a dressing. She was then returned to anesthesia where she was lightened, extubated and taken to recovery room in stable condition. ESTIMATED BLOOD LOSS: 10 mL. <ELECTRONICALLY SIGNED> By: Guillermo Sarah MD 10/31/19 1011 1356 1405 Guillermo Sarah MD /nt
== END 2019-10-22 12:56 | disposition home or self-care (01) ==
LOC: TBA 10:37 → OR 10:37 → TBA 10:38 → OR 11:37 → 4W 16:09 → OR 16:10 → 4W 16:10
PROVIDERS: ADMIT Otolaryngology
DX: E07.9 Disorder of thyroid, unspecified (principal); Z90.49 Acquired absence of other specified parts of digestive tract; Z98.890 Other specified postprocedural states
CPT/HCPCS: 50010; 50101; 50386; 50417; 50942; 52220; 54118; 56524; 56526; 56528; 56638; 57006; 62110; 62900; 65130; 70005

== ENCOUNTER → 2020-04-10 | Outpatient (CLI) | payer OTHER ==
[~2020-04-10] VITALS: Ht 152.4 cm; Wt 51.3 kg
[~2020-04-10] MED LIST changes: +LEVO-T100 MCG PO; +PEPCID AC10 MG PO
--- NOTE | 2020-04-10 17:08 | P ---
[facility] [place] [place] [address] PROCEDURE REPORT Name: STEPHANIE KING Room #: REG Fidelina Hutchins#: [id number] Admission: 04/10/20 Attend Phys: Shun Kowalski Discharge: Date of : 57 Report #: [id number] THIS REPORT FOR: cc: Elda Boogie DNP, Mary E. DNP McElhinney, Christian C. MD ~ CC: Shun LY DATE OF SERVICE: 04/10/2020 PROCEDURE PERFORMED: Upper endoscopy with biopsies and esophageal dilation. HISTORY OF PRESENT ILLNESS: The patient is a 64-year-old female well known to me with intermittent abdominal pain recently with recurrent dysphagia. Previous upper endoscopy last year with dilation was helpful for dysphagia; at that time, biopsies were negative for celiac sprue, H. pylori and Luong's. The patient is on daily PPI therapy. DESCRIPTION OF PROCEDURE: The risks and benefits of the procedure were explained to the patient, those risks including but not limited to bleeding, perforation and the risk of sedation. She understood these risks and gave informed consent. Sedation was given using propofol per anesthesia. Next, using a standard Olympus upper endoscope, the scope was placed in the patient's mouth and advanced under direct vision through the esophagus, stomach and into the second portion of the duodenum. In the upper and mid esophagus, multiple white plaques were noted, potentially consistent with Cecile esophagitis, biopsies were obtained. The GE junction was normal. No evidence of stricture, no esophagitis. Overall, the gastric mucosa was normal other than a few small gastric polyps, biopsies were obtained. The pylorus was normal and patent. The duodenal bulb, first and second portion were all normal. The scope was then brought back up into the patient's stomach and a Savary guidewire was inserted through the scope, leaving the guidewire in place as the scope was then withdrawn. Next, a 51-Urdu Savary dilation of the esophagus was then performed without difficulty. The wire and dilator were removed. The scope was reintroduced into the patient's stomach. No evidence of mucosal tear was noted after dilation. The scope was then withdrawn and the procedure terminated. The patient tolerated the procedure well. IMPRESSION: 1. Possible Cecile esophagitis. 2. Small gastric polyps. 3. Otherwise, normal upper endoscopy. RECOMMENDATIONS: [address] [address] PROCEDURE REPORT Name: STEPHANIE KING Room #: REG ADDY Hutchins#: [id number] Admission: 04/10/20 Attend Phys: Shun Kowalski Discharge: Date of : 57 Report #: [id number] 1. Await biopsy results. 2. Continue PPI therapy. 3. Observe the patient post-dilation. 4. We will treat empirically with Mycelex mike. 5. If dysphagia improves after dilation, the plan is to proceed with a dissolvable capsule for further evaluation of small bowel. Thank you for allowing me to participate in her care. <ELECTRONICALLY SIGNED> By: Shun Gray MD 04/10/20 1708 0927 1013 Shun Gray MD /nt
--- NOTE | 2020-04-14 18:08 | PATH ---
[facility] [address] [place] [address] PATHOLOGY RPT PROCEDURE Name: STEPHANIE KING Room #: REG ADDY Mcintosh.#: [id number] Admission: 04/10/20 Date of : 57 Discharge: Report #: [id number] Path Case #: [id number] [facility] Accession Number: [id number] . 01 Material submitted: . PART A: stomach - GASTRIC POLYPS PART B: esophagus - BX OF ESOPHAGUS . 01 Clinical history: . Dysphagia B. Rule out everette . 02 Diagnosis: A. Polyps, gastric polyps, endoscopic biopsy: - Dilated fundic glands, compatible with fundic gland polyp. - Negative for dysplasia. . B. Squamous mucosa, esophagus rule out Everette, endoscopic biopsy: - Marked active esophagitis associated with ulceration and abundant fungal hyphal elements compatible with Everette. - Negative for dysplasia. . (IUV:mml; 04/14/2020) QLM 04/14/2020 1500 Local . 02 Electronically signed: . Vesna Hernandez MD, Pathologist NPI- [id number] . 01 Gross description: . A. The specimen is received in formalin, labeled "Stephanie King, gastric polyps" and consists and consists of 3 fragments of pink-ambriz tissue measuring between 0.2 x 0.2 cm and 0.6 x 0.3 cm which are entirely submitted in A1. . B. The specimen is received in formalin, labeled "Stephanie King, BX of esophagus" and consists of multiple fragments of pink-ambriz tissue measuring 1.1 x 0.6 x 0.2 cm in aggregate which are entirely submitted in B1. (SDY; 04/10/2020) SYU/SYU 04/10/2020 1620 Local . 02 Pathologist provided ICD-10: K31.7, K20.9 . 02 CPT . 145604, 733875 Specimen Comment: A courtesy copy of this report has been sent to [phone], [place] [address] PATHOLOGY RPT PROCEDURE Name: STEPHANIE KING Room #: REG [facility]#: [id number] Admission: 04/10/20 Date of : 57 Discharge: Report #: [id number] Path Case #: [id number] Specimen Comment: [id number] Specimen Comment: Report sent to / DR EDEN Performed at: 01 [facility] [address], [place], [place] [id number] MD Lenard Grover MD Phone: [phone] Performed at: [address] [id number] MD Vesna Hernandez MD Phone: [phone]
== END | disposition home or self-care (01) ==
LOC: GI 07:23
DX: R10.9 Unspecified abdominal pain (principal); R13.10 Dysphagia, unspecified; K31.7 Polyp of stomach and duodenum; K22.10 Ulcer of esophagus without bleeding; F41.9 Anxiety disorder, unspecified; M19.90 Unspecified osteoarthritis, unspecified site; J45.909 Unspecified asthma, uncomplicated; D64.9 Anemia, unspecified; Z85.038 Personal history of other malignant neoplasm of large intestine; Z98.0 Intestinal bypass and anastomosis status; Z98.890 Other specified postprocedural states; Z79.899 Other long term (current) drug therapy; Z11.59 Encounter for screening for other viral diseases; Z90.49 Acquired absence of other specified parts of digestive tract; Z90.710 Acquired absence of both cervix and uterus; Z98.41 Cataract extraction status, right eye; Z98.42 Cataract extraction status, left eye; Z85.850 Personal history of malignant neoplasm of thyroid
CPT/HCPCS: 62110; 62900

== ENCOUNTER → 2020-04-16 | Outpatient (CLI) | payer OTHER ==
[2020-04-16 15:55] LABS: ABSOLUTE NEUTROPHILS 2.8 thou/uL (1.4-8.2); BASOPHILS 0.2 % (0.0-2.0); EOSINOPHILS 6.8 % (0.0-3.0); HEMATOCRIT 40.5 % (37.0-47.0); HEMOGLOBIN 13.7 gm/dL (12.0-15.0); LYMPHOCYTES 31.8 % (24.0-44.0); MCH 32.2 pg (26.0-34.0); MCHC 33.9 g/dL (28.0-37.0); MCV 95.1 fL (80.0-100.0); MONOCYTES 6.9 % (1.0-8.0); PLATELET COUNT 277 thou/uL (150-400); POLYS 54.3 % (36.0-66.0); RBC 4.26 mil/uL (4.20-5.00); RDW 12.6 % (10.5-14.5); WBC 5.2 thou/uL (4.0-11.0)
[2020-04-16 16:09] LABS: ALBUMIN 4.3 g/dL (3.4-5.0); ANION GAP 7 mmol/L (7-16); BUN 13 mg/dL (7-18); CALCIUM 8.6 mg/dL (8.5-10.1); CHLORIDE 98 mmol/L (98-107); CO2 28 mmol/L (21-32); CREATININE 0.8 mg/dL (0.6-1.0); GLUCOSE 91 mg/dL (74-106); SGOT 22 U/L (15-37); SGPT 22 U/L (30-65); SODIUM 133 mmol/L (136-145); TOTAL BILIRUBIN 0.3 mg/dL (0.2-1.0); TOTAL PROTEIN 7.1 g/dL (6.4-8.2)
== END ==
LOC: LAB 15:19
PROVIDERS: Internal Medicine Rheumatology
DX: M35.01 Sjogren syndrome with keratoconjunctivitis (principal)

== ENCOUNTER → 2020-05-15 | Outpatient (CLI) | payer OTHER | LOC: LAB 14:50 | PROVIDERS: ATTEND Nurse Practitioner | DX: E03.9 Hypothyroidism, unspecified (principal); I10 Essential (primary) hypertension ==

== ENCOUNTER → 2020-07-28 | Outpatient (CLI) | payer OTHER ==
[2020-07-28 17:45] LABS: ABSOLUTE NEUTROPHILS 3.7 thou/uL (1.4-8.2); BASOPHILS 0.8 % (0.0-2.0); EOSINOPHILS 4.6 % (0.0-3.0); HEMATOCRIT 40.6 % (37.0-47.0); HEMOGLOBIN 13.8 gm/dL (12.0-15.0); LYMPHOCYTES 26.7 % (24.0-44.0); MCH 32.2 pg (26.0-34.0); MCV 94.8 fL (80.0-100.0); MONOCYTES 7.5 % (1.0-8.0); PLATELET COUNT 277 thou/uL (150-400); POLYS 60.4 % (36.0-66.0); RBC 4.29 mil/uL (4.20-5.00); RDW 13.1 % (10.5-14.5); WBC 6.2 thou/uL (4.0-11.0)
[2020-07-28 18:07] LABS: ALBUMIN 4.4 g/dL (3.4-5.0); ANION GAP 10 mmol/L (7-16); BUN 12 mg/dL (7-18); CHLORIDE 98 mmol/L (98-107); CO2 28 mmol/L (21-32); CREATININE 0.7 mg/dL (0.6-1.0); GLUCOSE 94 mg/dL (74-106); POTASSIUM 4.3 mmol/L (3.5-5.1); SGOT 20 U/L (15-37); SGPT 26 U/L (30-65); SODIUM 136 mmol/L (136-145); TOTAL BILIRUBIN 0.4 mg/dL (0.2-1.0); TOTAL PROTEIN 7.5 g/dL (6.4-8.2)
== END ==
LOC: LAB 14:50
PROVIDERS: ATTEND Internal Medicine Rheumatology
DX: E03.9 Hypothyroidism, unspecified (principal); I10 Essential (primary) hypertension; M35.01 Sjogren syndrome with keratoconjunctivitis

== ENCOUNTER → 2020-08-18 | Outpatient (CLI) | payer OTHER | LOC: LABMALL 15:27 | PROVIDERS: ATTEND Nurse Practitioner | DX: E03.8 Other specified hypothyroidism (principal) ==

== ENCOUNTER 2020-09-10 08:00 | Inpatient (IN) | payer OTHER ==
[~2020-09-10] VITALS: Ht 152.4 cm; Wt 51.5 kg
[~2020-09-10 08:00] MED LIST changes: -PEPCID AC10 MG PO; +PROTONIX40 M2 PO
[2020-09-10 09:23] LABS: CALCIUM 9.2 mg/dL (8.5-10.1); CREATININE 0.8 mg/dL (0.6-1.0); POTASSIUM 4.2 mmol/L (3.5-5.1)
[2020-09-10 09:53] VITALS: BP 111/73
--- NOTE | 2020-09-10 11:20 | EKG ---
[facility] [place] [place] [address] ELECTROCARDIOGRAM REPORT Name: STEPHANIE KING Room #: 150-11 ADM IN M.R.#: [id number] Admission: 09/10/20 Attend Phys: Zion Osullivan MD Discharge: Date of : 57 Report #: [id number] THIS REPORT FOR: cc: Elda Boogie DNP, Mary E. DNP Santiago, Patrick MD [facility] ~ THIS REPORT FOR: //name// [facility] Test Date: 2020-09-10 Test Time: 08:26:35 Pat Name: STEPHANIE KING Department: Room: 150 11 Gender: F Rn Immunology: RYAN : 1955 Requested By: Zion Osullivan Order Number: [id number] MD: Long Crespo Measurements Intervals [place] Rate: 71 P: 63 NV: 159 QRS: -27 QRSD: 103 T: 68 QT: 402 QTc: 437 Interpretive Statements Sinus rhythm Borderline left axis deviation Borderline low voltage, extremity leads Baseline wander in lead(s) V3 Compared to ECG 07/04/2018 01:52:37 ST (T wave) deviation no longer present Electronically Signed On 09-10-2020 11:20:13 CDT by Long Crespo [email or web address] <ELECTRONICALLY SIGNED> By: Long Crespo MD, FACC 09/10/20 1120 5 5 Long Crespo MD, FACC /EPI
[2020-09-10 16:34] VITALS: BP 115/73
--- NOTE | 2020-09-10 18:36 | NUR ---
PATIENT ADMITTED FROM [address] LAP REPAIR OF INTERNAL HERNIA, LAP ASSISTED SIGMOID COLECTOMY. PATIENT HAS GUAZE WITH OPSITE IN PLACE, SATURATED WITH BLOOD, REINFORCED WITH OPSITE. PATIENT IS NPO EXCEPT MEDS WITHN SIP OF WATER AND ICE CHIPS. PATIENT DENIES NAUSEA AT THIS TIME. PATIENT HAS LEFT HAND IV IV FLUIDS STARTED AT 70CC/HR. TIMMONS CATHETER IN PLACE, WITH YELLOW URINE NOTED. REPORT GIVEN TO OSKAR/JENNIFFER. ADMISSION COMPLETED.
[2020-09-10 20:01] VITALS: BP 125/83
--- NOTE | 2020-09-11 00:03 | NUR ---
ASSUMED PT CARE AT 1800.PT C/O PAIN ON HER ABD,MANAGED WITH MED.PT'S ABD BINDER ARRIVED,PT TRIED IT ON BUT SHE STATED THAT IT WAS NOT HER SIZE,TRIED IT ON A SECOND TIME BUT DECIDED THAT SHE DOESN'T WANT IT ON.PT'S TEMP AT START OF SHIFT WAS 100.3 BUT IT CAME DOWN 99.1.PT NPO EXCEPT FOR MEDS WITH SIPS OF WATER AND ICE CHIPS.PT REF HER TORADOL SHE STATED THAT SHE WAS ADVISED BY ONE OF HER PHYSICIANS NOT TO TAKE THEM.WATER TREATMENT OPERATOR ON DUTY NOTIFIED,MED DC'D.TIMMONS CATH IN PLACE WITH LIGHT YELLOW URINE NOTED IN THE BAG.4LAP SITES NOTED WITH ONE SATURATED WITH BLOOD.PT SLEEPING ON HER BED AT THIS TIME.PT WEANED OFF O2 SAT AT 98%.FALL PRECAUTIONS AND SCD IN PLACE.CALL LIGHT WITHIN REACH.
[2020-09-11 04:38] VITALS: BP 98/62
[2020-09-11 05:45] LABS: HEMATOCRIT 34.5 % (37.0-47.0); HEMOGLOBIN 11.5 gm/dL (12.0-15.0); MCH 31.6 pg (26.0-34.0); MCHC 33.5 g/dL (28.0-37.0); MCV 94.3 fL (80.0-100.0); RBC 3.65 mil/uL (4.20-5.00); RDW 12.9 % (10.5-14.5); WBC 10.8 thou/uL (4.0-11.0)
[2020-09-11 06:09] LABS: ALBUMIN 3.2 g/dL (3.4-5.0); CALCIUM 8.3 mg/dL (8.5-10.1); CREATININE 0.8 mg/dL (0.6-1.0); MAGNESIUM 1.8 mg/dL (1.8-2.4); PHOSPHORUS 3.4 mg/dL (2.5-4.9)
[2020-09-11 07:40] VITALS: BP 105/57
--- NOTE | 2020-09-11 08:26 | NUR ---
ASSESSMENT: CM REVIEWED CHART AND SPOKE WITH PATIENT. PT IS S/P DIAGNOSTIC LAPAROSCOPY. PT REPORTS LIVING IN A [place]ANCH [place] HOME WITH HER . PT IS ALERT AND ORIENTED X4. PT REPORTS BEING FULLY INDEPENDENT WITH ADLS AND AMBULATION. PT REPORTS NO HX OF HH OR SNF. CM DISCUSSED ROLE. PT DOES NOT ANTICIPATE HAVING ANY NEEDS FROM CM PRIOR TO DISCHARGE. PTS PLANS ARE TO DISCHARGE HOME WITH NO NEEDS ONCE MEDICALLY STABLE.
--- NOTE | 2020-09-11 09:54 | NUR ---
assumed care at 0700. A&O X 4.
--- NOTE | 2020-09-11 10:15 | NUR ---
assumed care at 0700. A&o x4. SED hose was placed again during shift once patient was laying down on the bed. Vital signs are normal. Lung and heart sound are regular and clear. Abdomen was flat and not distended at 0800. at 0945, pt complains of pain of 8/10 and was administered hydromorphone IV push. Abdomen is distended more than this AM. Patient denies of nausea and vomitting. Pt was struggling to swallow pills with a sip of water. Pt has given us a copy of advance directives. I put copy in the pt chart in the advance directive selection. Pt is a no code. Varner is intact and urine is clear and yellow.
[2020-09-11 16:39] VITALS: BP 92/72
[2020-09-11 19:41] VITALS: BP 120/78
--- NOTE | 2020-09-12 03:13 | NUR ---
PT HAVE LOW GRADE TEMP AT START OF SHIFT,ON ZHENG TYLENOL.DRSG OB HER ABD INTACT.PT STILL NPO EXCEPT FOR MEDS.PT C/O PAIN ON HER ABD,MANAGED WITH MED.PT CONT ON IVF ORDERED.PT PROGRESSING SLOWLY TOWARDS DC GOALS.CALL LIGHT WITHIN REACH.
[2020-09-12 05:31] VITALS: BP 131/90
[2020-09-12 08:30] VITALS: BP 124/79
--- NOTE | 2020-09-12 08:30 | NUR ---
PT LYING IN BED COMPLAINED OF PAIN TO ABD OF 7 ON 1-10 SCALE. PT STATED PAIN FEELS SHARP AND PRESSURE THAT GOES TO BACK. PT DENIES ANY PASSING GAS OR BELCHING. PT STRICTLY NPO. PT USES MOUTH SWABS NEEDED. PT HAS 5 DRESSING SITES THAT HAS DRIED BLOOD ON GAUZE AND COVERED WITH TEGADERM. PT STATED DRESSINGS ARE SUPPOSED TO BE CHANGED TODAY. PT HAS D5 1/2 NS WITH 20MEQ K GOING AT 70 TO LEFT HAND. PT HAS SL TO RT FA. PT HAS BOWEL SOUNDS IN LOWER QUAD, SOME BLOATING PER PT. PT STATED SHE IS NOT IN A HURRY TO HAVE AN INTAKE OF FOOD. PT WEARS GOOGLES DUE TO EYE IRRITATION AND SHE SEES WELL IN RT EYE. WILL CON. TO MONITOR.
--- NOTE | 2020-09-12 10:54 | NUR ---
ADM DILAUDID 0.25MG IV FOR PAIN OF 9 ON 1-10 SCALE. PT WALKED IN ROOM A LITTLE WITH . PT STATED ZOFRAN HELPED THE NAUSEA.
--- NOTE | 2020-09-12 15:49 | NUR ---
PT WANTED TO KNOW IF SHE IS TAKING HER PEPCID, DIDN'T SEE ON ACTIVE MEDS. PT STATED SHE TAKES IT FOR ANTI-HISTAMINE TO PREVENT REDDNESS AND ITCHING. SHE SAYS SHE TAKES BOTH PROTONIX AND PEPCID. SHE STATED SHE USED TO TAKE ZANTAC WHICH IS OFF THE MARKET.
[2020-09-12 16:35] VITALS: BP 105/66
--- NOTE | 2020-09-12 16:38 | NUR ---
PT UP WALKING AROUND UNIT WITH . PT COMPLAINING OF NAUSEA, ADM ZOFRAN 4MG IV FOR NAUSEA. STILL NO BELCHING OR PASSING GAS. PT THOUGHT SHE HAD A SMALL FLATULANCE.
--- NOTE | 2020-09-12 17:17 | NUR ---
NO CALL BACK FROM DR. ESPAÑA ON PEPCID MEDICATION. WILL RE-PAGE.
--- NOTE | 2020-09-12 17:33 | NUR ---
DR. LIM CALLED BACK AND OBTAINED ORDERS FOR PEPCID. NOTIFED THAT SHE TAKES BOTH PROTONIX FOR GERD AND ALSO PEPCID.
--- NOTE | 2020-09-12 18:00 | NUR ---
PT HAS BEEN UP WALKING AROUND UNIT WITH 3 TIMES. PT DIDN'T WANT TO TAKE MEDS FOR PAIN JUST TYLENOL AT THIS TIME EXCEPT FOR TONIGHT. PT STILL HAS SOMETHING IN HER RT EYE. PT PUTTING WARM WASHRAG OVER EYE.
[2020-09-12 19:51] VITALS: BP 123/82
--- NOTE | 2020-09-13 04:47 | NUR ---
aSSUMED PT'S CARE THIS PM SHIFT. PT ALERT AND ORIENTED X4. VSS ON RA. MEDS GIVEN PER EMAR. PRN PAIN MEDS GIVEN THIS SHIFT. PT SLEPT WELL THIS SHIFT. 4 LAP SITES. DRESSING INTACT. FALL PRECAUTION IN PLACE. CALL LIGHT WITHIN REACH. WILL CONTINUE TO MONITOR.
[2020-09-13 09:00] VITALS: BP 132/69
--- NOTE | 2020-09-13 09:00 | NUR ---
PT REFUSED VIT D THIS AM. PT STATED SHE DIDN'T WANT TO TAKE IT IF NOT EATING. PT TOLERATING SIPS WITH MEDS. PT ABD IS SOFT AND ACTIVE BS. PT PASSING GAS. PT DENIES ANY NAUSEA AT THIS TIME. PT STATED PAIN IS 7 ON 1-10 SCALE. PT HAS TIMMONS TO DD AND IS CLEAR. IV FLUIDS RUNNING TO LEFT FOREARM.
--- NOTE | 2020-09-13 12:40 | NUR ---
TOOK OUT TIMMONS CATH PER ORDERS. PT HAS 425ML CLEAR LIQUID URINE OUT. UA OBTAINED PER PT REQUEST. TOOK OFF ABD DRESSING, TEGADERM AND GAUZE PER DR. REQUEST LEAVING INCISONS OPEN TO AIR. SLIGHT REDDNESS NOTED AFTER TAKING OFF TEGADERM. CLEANED SITES WITH SALINE AND PATTED DRY PER PT REQUEST.
[2020-09-13 12:57] LABS: URINE BILIRUBIN NEGATIVE (Negative); URINE BLOOD 2+ (Negative); URINE CLARITY CLEAR; URINE COLOR ORANGE; URINE GLUCOSE-RANDOM* NEGATIVE (Negative); URINE KETONES TRACE (Negative); URINE LEUKOCYTES-REFLEX NEGATIVE (Negative); URINE NITRITE-REFLEX NEGATIVE (Negative); URINE PROTEIN (DIPSTICK) NEGATIVE (Negative); URINE UROBILINOGEN 0.2 E.U./dl (0.2-1.0)
[2020-09-13 13:07] LABS: CASTS None Seen /LPF (None Seen); SQUAMOUS 0-3 Few /LPF (0-3)
[2020-09-13 13:08] LABS: BACTERIA-REFLEX None Seen /HPF (None Seen); CRYSTALS None Seen /LPF (None Seen); URINE RBC 0-2 Rare /HPF (0-2); URINE WBC-REFLEX 0-5 Rare /HPF (0-5)
--- NOTE | 2020-09-13 14:45 | NUR ---
PT VOIDED 400ML OF CLEAR YELLOW URINE. PT COMPLAINED OF LEFT FA IV SITE ITCHING UNDER TEGADERM AND IT WAS LEAKING. TIGHTENED UP THE CANNULA ON IV. PT ABLE TO HAVE CLEAR LIQUIDS NOW. PT WANTING DECAF COFFEE WITH REG. SUGAR. PT STATED SHE CAN'T HAVE SWEETENERS. NO PAIN OR NAUSEA WITH CLEAR LIQUIDS. PT ALSO STATED SHE CAN'T HAVE DIET JELLO DUE TO SWEETENER. DIETARY BROUGHT REG JELLO FOR HER.
[2020-09-13 16:00] VITALS: BP 129/82
--- NOTE | 2020-09-13 16:50 | NUR ---
PT HAS BEEN WALKING AROUND THE UNIT WITH . PT HAS HAD X2 STOOLS THAT IS LOOSE. PT STATED LEFT FA IV IS LEAKING, SWITCHED IV TO RT FA.
[2020-09-13 19:42] VITALS: BP 123/82
[2020-09-13 21:26] VITALS: BP 123/82
[2020-09-14 04:12] VITALS: BP 112/73
--- NOTE | 2020-09-14 07:42 | NUR ---
PT AOX4. PT REPORTS 7-8/10 ABDOMINAL PAIN. PT RECEIVING PRN IV DILAUDID Q4HR WITH PRN PO OXYCODONE AVAILABLE. PT REFUSING PRN OXYCODONE DUE TO RELUCTANCE TO TAKE ANTIINFLAMMATORY MEDICATION. PT PROVIDED WITH WARM BLANKET TO APPLY TO ABDOMEN. PT REPORTS RELIEF. PT AMBULATING WITH STANDBY ASSIST TO BED AND BATHROOM. PT TOLERATING PO INTAKE OF FLUIDS AND CLEAR LIQUID DIET. PT ENCOURAGED TO NOTIFY STAFF FOR ALL NEEDS. CALL LIGHT WITHIN REACH, BED ALARM ON, BED IN LOWEST POSITION, FREQUENT MONITORING WILL CONTINUE.
--- NOTE | 2020-09-14 15:21 | NUR ---
ASSUMED CARES AT 0700. PT AWAKE, ALERT AND ORIENTED*4. C/O MILD ABDOMINAL PAIN BELOW THE INCISION, ACETAMINOPHEN ADMINISTERED PER ORDER. C/O NAUSEA BUT NO EMESIS, ZOFRAN ADMINISTERED NEEDED. VITALS REMAIN STABLE. ABDOMINAL INCISION REMAINS DRY AND INTACT. BS ARE ACTIVE ON ALL 4QUADS, PT PASSING SMALL STRINGY BM. PT VOIDING MULTIPLE TIMES, URINE IS YELLOW WITH A STRONG ODOR, -VE FOR UTI. UP AD FIONA, AMBULATING THE HALLS WITH OR STAFF AND TOLERATED WELL. REMAINS ON CLEAR LIQUIDS, STATED THAT SHE DOESN'T WISH TO UPGRADE HER DIET UNTIL TOMORROW. Q1H VISUAL CHECKS. CALL LIGHT WITHIN REACH
--- NOTE | 2020-09-14 17:06 | PATH ---
[facility] [address] [place] [address] PATHOLOGY RPT PROCEDURE Name: GAVI KING Room #: 444-P ADM IN M.R.#: [id number] Admission: 09/10/20 Date of : 57 Discharge: Report #: [id number] Path Case #: [id number] [facility] Accession Number: [id number] . 01 Material submitted: . sigmoid colon - SIGMOID COLON AND PREVIOUS ANASTOMOSIS . 01 Clinical history: . ABDOMINAL PAIN . 02 Diagnosis: Large intestine, sigmoid colon and previous anastomosis, resection: - Markedly congested colonic wall along with dilatation, clinically twisted mesentery identified intraoperatively. - Negative for dysplasia or malignancy. - Margins of resection viable as well as unremarkable. - 5.6 cm additional segment showing marked congestion. . (IUV:mml; 09/14/2020) QLM 09/14/2020 1342 Local . 02 Electronically signed: . Vesna Hernandez MD, Pathologist NPI- [id number] . 01 Gross description: . The specimen is received in formalin, labeled "Gavi King, sigmoid colon and previous anastomosis". Received is an unoriented segment of colon measuring 18.6 cm in length by 3.9 cm in diameter. Both margins are stapled closed. The serosal surface is pink-ambriz to pink-dey and glistening in appearance. The attached pericolic fat measures up to 2.8 cm in thickness. The specimen is opened along the antimesenteric line to reveal light ambriz mucosa with moderate architectural folds. No distinct nodules or lesions are noted grossly. Sectioning through the attached pericolic fat reveals no readily identifiable lymph nodes. The specimen is submitted representatively as follows: . A1-A2 both margins A3-A4 senior sales representative cross-sections of colon. . Also received within the specimen container is an additional segment of colon measuring 1.5 cm in length by 5.6 cm in diameter. Both margins are stapled closed. At one margin, there is a defect identified measuring 1.5 x 1.0 cm with exposed dey-ambriz mucosa. Outreach Associate sections through this defect are submitted in cassette A5. (CAA; 09/11/2020) QAC/QAC 09/11/[address] [address] PATHOLOGY RPT PROCEDURE Name: GAVI KING Room #: 444-P [facility] IN M.R.#: [id number] Admission: 09/10/20 Date of : 57 Discharge: Report #: [id number] Path Case #: [id number] . 02 Pathologist provided ICD-10: R10.9 . 02 CPT . 656025 Specimen Comment: A courtesy copy of this report has been sent to [phone] Specimen Comment: Report sent to Performed at: [address] [facility] [address], [place], [place] [id number] MD Lenard Grover MD Phone: [phone] Performed at: [address] [facility] [address] [id number] MD Vesna Hernandez MD Phone: [phone]
[2020-09-14 19:10] VITALS: BP 138/59
--- NOTE | 2020-09-15 02:56 | NUR ---
ASSUMED PT CARE AT 1915. PT IS A&O X4. VSS. IV IS IN RIGHT AC SALINE LOCKED. TAKES MEDICINE WHOLE. PT COMPLAINS OF ABDOMINAL PAIN AT AN 8. PT RECEIVED DILAUDED. PT STATES THAT SHE IS IN PAIN AND BY THE END OF TE DAY SHE JUST TAKES IT. HER ABDOMINAL INCISION IS OPEN TO AIR. IT IS DRY AND INTACT. PT IS SLEEPING IN HER ROOM WILL CONTINUE TO MONITOR.
[2020-09-15 04:19] VITALS: BP 102/73
[2020-09-15 05:33] LABS: HEMATOCRIT 33.6 % (37.0-47.0); HEMOGLOBIN 11.1 gm/dL (12.0-15.0); MCH 31.2 pg (26.0-34.0); MCHC 33.1 g/dL (28.0-37.0); MCV 94.3 fL (80.0-100.0); RBC 3.57 mil/uL (4.20-5.00); RDW 12.6 % (10.5-14.5); WBC 8.2 thou/uL (4.0-11.0)
[2020-09-15 05:52] LABS: ALBUMIN 3.2 g/dL (3.4-5.0); CALCIUM 8.9 mg/dL (8.5-10.1); CREATININE 0.6 mg/dL (0.6-1.0); MAGNESIUM 1.8 mg/dL (1.8-2.4); PHOSPHORUS 3.8 mg/dL (2.5-4.9); POTASSIUM 3.9 mmol/L (3.5-5.1)
[2020-09-15 08:19] VITALS: BP 126/79
[2020-09-15 10:48] VITALS: BP 117/78
--- NOTE | 2020-09-15 14:34 | NUR ---
ON-GOING ASSESSMENT: CM REVIEWED CHART. PT IS BEING ADVANCED TO A FULL LIQUID DIET. CM WILL CONTINUE TO FOLLOW TO ASSIST NEEDED.
[2020-09-15 19:12] LABS: URINE BILIRUBIN NEGATIVE (Negative); URINE BLOOD 2+ (Negative); URINE CLARITY CLEAR; URINE COLOR YELLOW; URINE GLUCOSE-RANDOM* NEGATIVE (Negative); URINE KETONES 1+ (Negative); URINE LEUKOCYTES 1+ (Negative); URINE NITRITE POSITIVE (Negative); URINE PROTEIN (DIPSTICK) NEGATIVE (Negative); URINE SPECIFIC GRAVITY <= 1.005 (1.005-1.035); URINE UROBILINOGEN 0.2 E.U./dl (0.2-1.0)
[2020-09-15 19:18] LABS: BACTERIA >30 Many /HPF (None Seen); CASTS None Seen /LPF (None Seen); CRYSTALS None Seen /LPF (None Seen); SQUAMOUS None Seen /LPF (0-3); URINE RBC 0-2 Rare /HPF (0-2); URINE WBC >25 Many /HPF (0-5); WBC CLUMPS Few (None Seen)
[2020-09-15 20:11] VITALS: BP 127/79
--- NOTE | 2020-09-16 03:54 | NUR ---
ASSESSED AT START OF SHIFT 1900. PT A&OX4 C/O ABD PAIN. MEDS GIVEN SEE EMAR. ABD INCISION CLEAN, INTACT AND JERMAINE. EVENING MEDS GIVEN AND PT LILLIAN IT WELL. SCHEDULED TYLENOL PROVIDED. ON A FULL LIQUID DIET. CALL LIGHT AT REACH AND WILL CONT TO MONITOR.
[2020-09-16 07:38] VITALS: BP 124/78
--- NOTE | 2020-09-16 10:03 | NUR ---
PT ALERT XS4 TOOK AM MEDS AND ATE BREAKFAST. PT IS CONT OF B&B. PT IS WALKING THE HALLS WITH HER . ROOM AIR AND HAS L FA IV ACSESS WHICH IS SL. NO PAIN OR RESP DISTRESS AT THIS TIME.
[2020-09-16 15:52] VITALS: BP 110/75
[2020-09-16 18:58] VITALS: BP 118/84
--- NOTE | 2020-09-16 19:27 | NUR ---
PT STATES HAD STOOL THAT LOOKED LIKE BLOOD THIS NURSE COULD NOT TELL. SPECIMEN KRISHNAMURTHY PUT IN BATHROOM AND PATIENT TO LET NOC NURSE KNOW IF HAS BM. NIGHT NURSE AWARE OF PLAN.
[2020-09-17 03:52] VITALS: BP 120/70
--- NOTE | 2020-09-17 05:52 | NUR ---
ASSUMED PT'S CARE THIS PM SHIFT. PT ALERT AND ORIENTED. VSS ON RA. MEDS GIVEN PER EMAR. PRN DILAUDID GIVEN PER PT'S REQUEST. PT SLEPT THIS SHIFT. BEGINNING OF SHIFT, PT WAS CONCERNED ABOUT BLOOD IN STOOL. DR NEUMANN PAGED REGARDING THIS. DR NEUMANN VOICED IT BEING NORMAL. PT INFORMED. INCISION TO LOWER ABD INTACT WITH BRUISING. PT ANTICIPATED DC TO HOME TODAY. CALL LIGHT WITHIN REACH. WILL CONTINUE TO MONITOR.
--- NOTE | 2020-09-17 09:58 | NUR ---
PT UP AMBULATING THE HALLS AND IN HER ROOM. TOOK AM MEDS. ABD INCISION STILL WELL APPROXAMATED. PT TO DISCHARGE TODAY. IN ROOM.
[2020-09-17 10:38] VITALS: BP 128/74
[2020-09-17 13:42] LABS: ABSOLUTE NEUTROPHILS 4.3 thou/uL (1.4-8.2); BASOPHILS 0.6 % (0.0-2.0); EOSINOPHILS 11.9 % (0.0-3.0); HEMATOCRIT 36.2 % (37.0-47.0); HEMOGLOBIN 12.2 gm/dL (12.0-15.0); LYMPHOCYTES 18.2 % (24.0-44.0); MCHC 33.7 g/dL (28.0-37.0); MCV 94.7 fL (80.0-100.0); POLYS 61.3 % (36.0-66.0); RBC 3.82 mil/uL (4.20-5.00); RDW 12.8 % (10.5-14.5); WBC 6.9 thou/uL (4.0-11.0)
[2020-09-17 13:44] LABS: PLATELET COUNT 363 thou/uL (150-400)
[2020-09-17] MEDS ORDERED: TRAMADOL 50 MG50 MG PO (14:17)
[2020-09-17] MEDS ORDERED: MACROBID 100 M100 M1 PO (14:18)
--- NOTE | 2020-09-17 14:23 | NUR ---
on-going assessment: CM REVIEWED CHART. PT HAS ORDERS TO DISCHARGE HOME TODAY NO NEEDS. CASE CLOSED.
[2020-09-17 14:32] VITALS: BP 128/74
[2020-09-17 15:10] VITALS: BP 128/74
[2020-09-17 15:19] VITALS: BP 128/74
--- NOTE | 2020-09-17 15:20 | NUR ---
DISCHARGE PAPERS REVIEWED SIGNED AND COPY IN CHART. IV ACSESS DCD. RX FILLED. PT W/O PAIN OR RESP DISTRESS AT DC. PT TAKEN VIA W/C TO FAMILY CAR.
== END 2020-09-17 15:32 | disposition home or self-care (01) | DRG 330 ==
LOC: 4S 08:00 → TBA 08:00 → PRE 09:20 → 4S 13:08 → PRE 13:13 → 4S 14:03
PROVIDERS: Surgery; ADMIT Surgery; ATTEND Surgery
PROC: 0DBN0ZZ Excision of Sigmoid Colon, Open Approach (ICD-10-PCS; principal; 2020-09-10)
PROC: 0WUF4JZ Supplement Abdominal Wall with Synthetic Substitute, Percutaneous Endoscopic Approach (ICD-10-PCS; principal; 2020-09-10)
DX: K56.2 Volvulus (principal); N39.0 Urinary tract infection, site not specified; K44.9 Diaphragmatic hernia without obstruction or gangrene; G89.29 Other chronic pain; Z20.828 Contact with and (suspected) exposure to other viral communicable diseases; R10.9 Unspecified abdominal pain; Z79.899 Other long term (current) drug therapy; Z88.1 Allergy status to other antibiotic agents; Z88.8 Allergy status to other drugs, medicaments and biological substances; Z90.710 Acquired absence of both cervix and uterus
CPT/HCPCS: 10102; 50010; 50101; 50386; 50455; 50555; 50558; 51489; 51708; 51712; 52265; 53307; 53310; 56462; 56525; 56526; 56528; 56805; 57092; 62110; 62900; 65020; 65040; 70005

== ENCOUNTER → 2020-09-23 | Outpatient (CLI) | payer OTHER ==
[~2020-09-23] MED LIST changes: +MACROBID 100 M100 M1 PO
== END ==
LOC: RAD 09:35
PROVIDERS: ATTEND Nurse Practitioner
DX: Z12.31 Encounter for screening mammogram for malignant neoplasm of breast (principal)

== ENCOUNTER → 2020-09-25 | Outpatient (CLI) | payer OTHER ==
[2020-09-25 12:54] LABS: ABSOLUTE NEUTROPHILS 3.8 thou/uL (1.4-8.2); EOSINOPHILS 13.1 % (0.0-3.0); HEMATOCRIT 34.4 % (37.0-47.0); HEMOGLOBIN 11.9 gm/dL (12.0-15.0); LYMPHOCYTES 23.7 % (24.0-44.0); MCH 32.3 pg (26.0-34.0); MCHC 34.6 g/dL (28.0-37.0); MCV 93.3 fL (80.0-100.0); PLATELET COUNT 509 thou/uL (150-400); POLYS 54.2 % (36.0-66.0); RBC 3.69 mil/uL (4.20-5.00); RDW 12.8 % (10.5-14.5)
[2020-09-25 13:12] LABS: CREATININE 0.7 mg/dL (0.6-1.0); POTASSIUM 4.1 mmol/L (3.5-5.1); TOTAL BILIRUBIN 0.9 mg/dL (0.2-1.0); TOTAL PROTEIN 7.4 g/dL (6.4-8.2)
== END ==
LOC: RAD 12:07
PROVIDERS: ATTEND Nurse Practitioner
DX: E87.1 Hypo-osmolality and hyponatremia (principal); D64.9 Anemia, unspecified; R53.81 Other malaise; R53.83 Other fatigue; E55.9 Vitamin D deficiency, unspecified

== ENCOUNTER → 2020-10-12 | Outpatient (CLI) | payer OTHER | LOC: LAB 10:00 | PROVIDERS: ATTEND Nurse Practitioner | DX: E87.1 Hypo-osmolality and hyponatremia (principal); E03.9 Hypothyroidism, unspecified; D64.9 Anemia, unspecified; R53.81 Other malaise; R53.83 Other fatigue; E55.9 Vitamin D deficiency, unspecified ==

== ENCOUNTER → 2020-12-08 | Outpatient (CLI) | payer BC ==
[~2020-12-08] MED LIST changes: +LEVOTHYROXINE112 MC1 PO
[2020-12-08 09:49] LABS: CREATININE 0.8 mg/dL (0.6-1.0)
== END ==
LOC: LAB 09:00
PROVIDERS: ATTEND Nurse Practitioner
DX: Z00.00 Encounter for general adult medical examination without abnormal findings (principal)

== ENCOUNTER → 2020-12-09 | Outpatient (CLI) | payer BC, OTHER ==
[2020-12-09 08:31] LABS: HEMATOCRIT 39.9 % (37.0-47.0); HEMOGLOBIN 13.5 gm/dL (12.0-15.0)
== END ==
LOC: CAT 12-08 07:53
PROVIDERS: ATTEND Surgery
DX: R10.9 Unspecified abdominal pain (principal); G89.29 Other chronic pain

== ENCOUNTER → 2020-12-14 | Outpatient (CLI) | payer BC | LOC: LAB 09:17 | PROVIDERS: ATTEND Specialist | DX: Z01.812 Encounter for preprocedural laboratory examination (principal); Z20.822 Contact with and (suspected) exposure to COVID-19 ==

== ENCOUNTER → 2020-12-16 | Outpatient (CLI) | payer BC ==
[~2020-12-16] VITALS: Ht 152.4 cm; Wt 49.9 kg
--- NOTE | ~2020-12-16 | P ---
[facility] [place] [address] PROCEDURE REPORT Name: STEPHANIE KING Room #: REG [facility].#: [id number] Admission: 12/16/20 Attend Phys: Shun Kowalski Discharge: Date of : 57 Report #: [id number] THIS REPORT FOR: cc: Elda Boogie DNP, Mary E. DNP McElhinney, Christian C. MD ~ DATE OF SERVICE: 12/16/2020 PROCEDURE PERFORMED: Flexible sigmoidoscopy with balloon dilation of anastomosis. HISTORY OF PRESENT ILLNESS: The patient is a 65-year-old female who is well known to me with history of multiple abdominal surgeries with strictures in the past, intermittent chronic abdominal pain. On 09/10/2020, she underwent a diagnostic laparoscopy, laparoscopic repair of internal hernia, laparoscopic-assisted sigmoidectomy by Dr. Zion Osullivan. Postoperatively was doing well; however, she began having increased symptoms on the left side; therefore, underwent a CT scan of the abdomen and pelvis with contrast as well as rectal contrast on 12/09/2020. This showed surgical staple line in the mid descending colon, apparent moderate narrowing of the colon at the staple line. Plan is for flexible sigmoidoscopy today for further evaluation. DESCRIPTION OF PROCEDURE: The risks and benefits of the procedure were explained to the patient, those risks including but not limited to bleeding, perforation and the risk of sedation. She understood these risks and gave informed consent. Sedation was given using propofol per anesthesia. Next, a digital rectal exam was initially performed, which was normal. Next, using a standard Olympus colonoscope, the scope was placed in the patient's anus and advanced under direct vision to the ascending colon. The ascending, transverse and remaining descending colon were all normal. The surgical anastomosis was noted at 25 cm from the anus, there was a mild narrowing. The scope did pass through this area without difficulty. There was also some granulation tissue with a small amount of bright red blood, near the area. No significant bleeding was noted. The area distal to the anastomosis was normal and the remaining sigmoid colon and rectum. I then proceeded with a balloon dilation of the surgical anastomosis with an 18, 19 and 20 mm balloon. This was held in place for two minutes. There was a small amount of bleeding noted after dilation. The balloon catheter was removed and an APC cautery was then performed near the anastomosis. No further bleeding was noted after APC cauterization. The scope was then withdrawn and the procedure terminated. The patient tolerated the procedure well. IMPRESSION: 1. Mild narrowing, surgical anastomosis at 25 cm, status post balloon dilation as noted above. [address] [address] PROCEDURE REPORT Name: STEPHANIE KING Room #: REG [facility]#: [id number] Admission: 12/16/20 Attend Phys: Shun Kowalski Discharge: Date of : 57 Report #: [id number] 2. Granulation tissue with a small amount of bleeding at the anastomosis site treated today with APC cautery. RECOMMENDATION: Observe the patient post-procedure. Thank you for allowing me to participate in her care. By: 1027 [id number] Shun Gray MD /nt
== END | disposition home or self-care (01) ==
LOC: GI 07:51
PROVIDERS: ATTEND Specialist
DX: K56.699 Other intestinal obstruction unspecified as to partial versus complete obstruction (principal); R10.9 Unspecified abdominal pain; G89.29 Other chronic pain; J45.909 Unspecified asthma, uncomplicated; K21.9 Gastro-esophageal reflux disease without esophagitis; F41.9 Anxiety disorder, unspecified; M19.90 Unspecified osteoarthritis, unspecified site; Z98.890 Other specified postprocedural states; Z85.068 Personal history of other malignant neoplasm of small intestine; Z85.850 Personal history of malignant neoplasm of thyroid; Z79.899 Other long term (current) drug therapy; Z90.49 Acquired absence of other specified parts of digestive tract; Z90.710 Acquired absence of both cervix and uterus; Z98.41 Cataract extraction status, right eye; Z98.42 Cataract extraction status, left eye; Z88.8 Allergy status to other drugs, medicaments and biological substances
CPT/HCPCS: 62110; 62900

== ENCOUNTER → 2021-03-05 | Outpatient (CLI) | payer BC ==
[~2021-03-05] MED LIST changes: +MIRALAX119 GM PO; +PEPCID AC10 MG PO; -VITAMIN D2000 UNIT PO; +VITAMIN D350 MCG PO
== END ==
LOC: LAB 10:49
PROVIDERS: ATTEND Specialist
DX: Z01.812 Encounter for preprocedural laboratory examination (principal); Z20.822 Contact with and (suspected) exposure to COVID-19

== ENCOUNTER → 2021-03-10 | Outpatient (CLI) | payer BC ==
[~2021-03-10] VITALS: Ht 152.4 cm; Wt 50.3 kg
--- NOTE | 2021-03-15 16:57 | O ---
[facility] [place] [address] OPERATIVE REPORT Name: STEPHANIE KING Room #: REG [facility].#: [id number] Admission: 03/10/21 Attend Phys: Shun Kowalski Discharge: Date of : 57 Report #: [id number] THIS REPORT FOR: cc: Elda Boogie DNP, Mary E. DNP McElhinney, Christian C. MD ~ DOC #: [id number] cc: MALACHI An MD DATE OF SERVICE: 03/10/2021 PROCEDURE PERFORMED: Upper endoscopy with esophageal dilation. HISTORY OF PRESENT ILLNESS: The patient is a 65-year-old female with a history of gastroesophageal reflux disease and recurrent dysphagia. Last upper endoscopy with dilation was performed in 03/2020, which was helpful using a 51-Urdu at that time. She now reports recurrent dysphagia. Plan is for repeat endoscopy with dilation. DESCRIPTION OF PROCEDURE: The risks and benefits of the procedure were explained to the patient, those risks including but not limited to bleeding, perforation and the risk of sedation. She understood these risks and gave informed consent. Sedation was given using propofol per anesthesia. Next, using a standard Olympus upper endoscope, the scope was placed in the patient's mouth and advanced under direct vision through the esophagus, stomach and into the second portion of the duodenum. The larynx was normal in appearance. The esophagus was normal throughout. The GE junction was normal. No evidence of stricture. Overall, the gastric mucosa was normal. The pylorus was normal and patent. Duodenum, bulb, first and second portion were all normal. The scope was then brought back up into the patient's stomach and a guidewire was inserted through the scope, leaving the guidewire in place as the scope was then withdrawn. Next, a 51-Urdu Savary dilation of the esophagus was performed without difficulty. The wire and dilator were removed. The scope was reintroduced into the patient's stomach. There was no evidence of mucosal tear after dilation. The scope was then withdrawn and the procedure terminated. The patient tolerated the procedure well. IMPRESSION: Normal upper endoscopy. RECOMMENDATIONS: 1. Observe status post dilation. 2. Continue daily PPI therapy. 3. Repeat on a p.r.n. basis. Thank you for allowing me to participate in her care. [address] [address] OPERATIVE REPORT Name: FERNANDOSTEPHANIE ANNA Room #: JAQUAN DALY Cuong#: [id number] Admission: 03/10/21 Attend Phys: Shun Kowalski Discharge: Date of : 57 Report #: [id number] Shun Gray MD CCM/NOO <ELECTRONICALLY SIGNED> By: Shun Gray MD 03/15/21 [id number] [id number] Shun Gray MD /kelly
== END | disposition home or self-care (01) ==
LOC: GI 06:50
PROVIDERS: ATTEND Specialist
DX: R13.10 Dysphagia, unspecified (principal); K21.9 Gastro-esophageal reflux disease without esophagitis; J45.909 Unspecified asthma, uncomplicated; D64.9 Anemia, unspecified; M19.90 Unspecified osteoarthritis, unspecified site; Z90.49 Acquired absence of other specified parts of digestive tract; Z90.710 Acquired absence of both cervix and uterus; Z98.41 Cataract extraction status, right eye; Z98.42 Cataract extraction status, left eye; Z98.890 Other specified postprocedural states; Z79.899 Other long term (current) drug therapy; Z85.850 Personal history of malignant neoplasm of thyroid; Z85.068 Personal history of other malignant neoplasm of small intestine; Z88.8 Allergy status to other drugs, medicaments and biological substances
CPT/HCPCS: 62110; 62900

== ENCOUNTER → 2021-05-19 | Outpatient (CLI) | payer BC | LOC: ULTRA 10:19 | PROVIDERS: ATTEND Otolaryngology | DX: E89.0 Postprocedural hypothyroidism (principal); E04.1 Nontoxic single thyroid nodule ==

== ENCOUNTER → 2021-07-20 | Outpatient (CLI) | payer BC | LOC: RAD 08:32 | PROVIDERS: ATTEND Specialist | DX: R10.84 Generalized abdominal pain (principal) ==

== ENCOUNTER → 2021-08-27 | Outpatient (CLI) | payer OTHER, MEDICARE ==
[2021-08-27 09:43] LABS: CREATININE 0.8 mg/dL (0.6-1.0)
== END ==
LOC: CAT 08-24 10:09
PROVIDERS: ATTEND Surgery
DX: K59.00 Constipation, unspecified (principal)

== ENCOUNTER → 2021-10-18 | Outpatient (CLI) | payer OTHER, MEDICARE | LOC: RAD 08:53 | PROVIDERS: ATTEND Nurse Practitioner | DX: Z12.31 Encounter for screening mammogram for malignant neoplasm of breast (principal); N64.89 Other specified disorders of breast ==